=== PATIENT | female | born 1935 | race Asian ===

== ENCOUNTER 2017-01-25 10:16 | Inpatient (IN) | payer MEDICARE, MEDICAID ==
[~2017-01-25] VITALS: Ht 144.8 cm; Wt 53.5 kg
[~2017-01-25 10:16] MED LIST: ALLO100T PO; CLOP75TA2 PO; METO50TA3 PO; NIFE20CA PO; RETINAVITES
--- NOTE | 2017-01-25 10:21 | NUR ---
bib family due to nausea and vomitting x 7 days. Denies vomitting within the day, last episode was last night. Patient denies abdominal pain. No chest pain noted. No sob, sating well on room air. Skin is warm to touch and non diaphoretic,. pt afebrile. vss. gowned and placed on tele monitor
--- NOTE | 2017-01-25 10:25 | NUR ---
iv accessed to [facility] 20. blood sample sent to lab
[2017-01-25 10:45] LABS: BASOPHILS # (AUTO) 0.1 /CMM (0.0-0.2); BASOPHILS % (AUTO) 0.6 % (0.0-2.0); EOSINOPHILS # (AUTO) 0.8 /CMM (0.0-0.7); EOSINOPHILS % (AUTO) 8.1 % (0.0-6.0); HEMATOCRIT 30 % (33-45); LYMPHOCYTES # (AUTO) 1.7 /CMM (0.8-4.8); LYMPHOCYTES % (AUTO) 16.8 % (20.0-44.0); MEAN CORPUSCULAR HEMOGLOBIN 30 PG (26.0-33.0); MEAN CORPUSCULAR HGB CONC 33 g/dl (31.0-36.0); MEAN CORPUSCULAR VOLUME 93 fL (82-100); MONOCYTES # (AUTO) 0.9 /CMM (0.1-1.30); MONOCYTES % (AUTO) 8.7 % (2.0-12.0); NEUTROPHILS # (AUTO) 6.6 /CMM (1.8-8.9); NEUTROPHILS % (AUTO) 65.8 % (43.0-81.0); PLATELET COUNT (AUTO) 178 /CMM (150-450); RDW COEFFICIENT OF VARIATION 14.8 (11.5-15.0); RED BLOOD CELL COUNT(AUTO) 3.28 MIL/uL (4.0-5.2); WHITE BLOOD COUNT (AUTO) 10.1 K/uL (4.3-11.0)
[2017-01-25] MEDS ORDERED: IV NS 0.9% 1,000 ML ONE ×2 (10:55→11:30)
[2017-01-25] MEDS ORDERED: ONDANSETRON HCL/PF 4 MG/2 ML VIAL ONE (10:55)
[2017-01-25] MEDS ORDERED: ONDANSETRON HCL/PF 4 MG/2 ML VIAL IVP ONE (11:00)
[2017-01-25] MEDS ORDERED: IV NS 0.9% 1,000 ML BAG IV ONE ×2 (11:00→11:30)
--- NOTE | 2017-01-25 11:13 | NUR ---
urine sample sent to lab
[2017-01-25 11:14] LABS: ALANINE AMINOTRANSFERASE 13 U/L (12-78); ALBUMIN 3.1 g/dL (3.4-5.0); ALKALINE PHOSPHATASE 115 U/L (46-116); ASPARTATE AMINOTRANSFERASE 13 U/L (15-37); BILIRUBIN,DIRECT 0.1 mg/dL (0.0-0.2); BILIRUBIN,TOTAL 0.3 mg/dL (0.2-1.0); CALCIUM, SERUM 9.2 mg/dL (8.5-10.1); CARBON DIOXIDE 14 mmol/L (21-32); CHLORIDE 111 mmol/L (98-107); GLUCOSE 102 mg/dL (74-106); LIPASE 794 U/L (73-393); POTASSIUM 4.7 mmol/L (3.5-5.1); SODIUM SERUM 141 mmol/L (136-145); TOTAL PROTEIN, SERUM 8.3 g/dL (6.4-8.2)
[2017-01-25 11:16] LABS: APPEARANCE,URINE Turbid (CLEAR); BILIRUBIN,URINE Negative (NEGATIVE); BLOOD, URINE Moderate Ery/uL (NEGATIVE); COLOR,URINE Yellow (YELLOW); KETONES,URINE Negative (NEGATIVE); LEUKOCYTE ESTERASE ,URINE Large (NEGATIVE); NITRITE, URINE Positive (NEGATIVE); PROTEIN,URINE >=300 mg/dl (NEGATIVE); UGLUCOSE Negative (NEGATIVE); UROBILINOGEN,URINE 0.2 EU/dL (0.2)
[2017-01-25 11:16] LABS: TROPONIN I < 0.017 ng/mL (0.00-0.056)
[2017-01-25 11:18] LABS: UREA NITROGEN, BLOOD 85 mg/dL (7-18)
[2017-01-25 11:30] LABS: ADD URINE CULTURE YES; BACTERIA,URINE 2+ /HPF (None Seen); WBC,URINE 51-80 /HPF (0-3)
[2017-01-25] MEDS ORDERED: TEMA15CA PO (11:30)
[2017-01-25] MEDS ORDERED: CEFTRIAXONE 1GM BAG (ER ONLY) 1 GM/50 ML PIGGYBACK IV ONE (11:30)
[2017-01-25] MEDS ORDERED: IV SET PRIMARY PUMP SET 1 EA INFUS.SET MC ONE ×2 (11:30→12:49)
[2017-01-25] MEDS ORDERED: SECONDARY IV SET 1 EA INFUS.SET MC ONE (11:30)
[2017-01-25] MEDS ORDERED: NIFE60TA69 PO (11:30)
[2017-01-25] MEDS ORDERED: CEFTRIAXONE 1GM BAG (ER ONLY) 50 ML IV ONE (11:30)
[2017-01-25 11:31] LABS: URINE AMORPHOUS URATE Moderate /HPF (None Seen)
--- NOTE | 2017-01-25 11:51 | NUR ---
Report given to BEREKET Lowery for change of condition.
--- NOTE | 2017-01-25 12:15 | NUR ---
Pt transported to ms 2. vss
[2017-01-25] MEDS ORDERED: Z GUARD REMEDY 2 OZ OINT TP PRN (12:30)
[2017-01-25] MEDS ORDERED: MAG HYDROX/AL HYDROX/SIMETH 30 ML UDC PO PRN (12:30)
[2017-01-25] MEDS ORDERED: ONDANSETRON HCL/PF 4 MG/2 ML VIAL IVP PRN (12:30)
[2017-01-25] MEDS ORDERED: METOPROLOL TARTRATE 50 MG TABLET PO SCH ×2 (12:30→17:09)
[2017-01-25] MEDS: NIFEdipine XL 60 MG TAB PO SCH (12:30)
[2017-01-25] MEDS ORDERED: ACETAMINOPHEN 325 MG TABLET PO PRN (12:30)
[2017-01-25] MEDS ORDERED: MAGNESIUM HYDROXIDE 30 ML UDC PO PRN (12:30)
--- NOTE | 2017-01-25 13:00 | NUR ---
MS/radiology director Patient admitted from emergency room with diagnosis of acute pancreatitis and dehydration. Patient fully admitted, skin intact, IV fluids infusing at 75ml/hr via rigth AC 20g. Denies any pain at this time. Admitting orders given by Dr Peacock.
[2017-01-25] MEDS: IV NS 0.9% 1,000 ML IV PRN (13:04)
[2017-01-25 16:00] VITALS: BP 127/77
[2017-01-25] MEDS: PANTOPRAZOLE 40 MG VIAL IV SCH (16:52)
--- NOTE | 2017-01-25 17:00 | NUR ---
MS/RN Metoprolol Patient requesting metoprolol 50mg given rescheduled to be given at night time. Pharmacy called, spoke with Adam, will reschedule per patients request.
--- NOTE | 2017-01-25 18:07 | NUR ---
MS/RN Dr Peacock Spoke with Dr Peacock - CT scan of abdomen and pelvis without contrast to be ordered. GI consult requested with Dr Rojas.
--- NOTE | 2017-01-25 18:49 | NUR ---
MS/RN End note Patients condition remains unchanged, family at bedside and updated as to plan of care. Awaiting for CT scan. All questions and concerns addressed. Will endorse to shift supervisor melting.
--- NOTE | 2017-01-25 19:30 | NUR ---
MSRN FULLY AWAKE, FAMILY AT BEDSIDE, VERY SUPPORTIVE. PRESENT IVF INFUSING WELL VIA LEFT AC 22 GAUGE. CLEAR LIQUIDS ONLY ALLOWED. RADIOLOGY TO DO HER CT ABD IN AM. NOTIFIED FAMILY. DENIES ANY PAIN OF THIS TIME. REMINDED TO CALL STAFF FOR ANY ASSISTANCE OR DISCOMFORTS, AND SAFETY PRECAUTIONS EMPHASIZED. WELL UNDERSTOOD BY PATIENT.
[2017-01-25 20:17] VITALS: BP 136/63
--- NOTE | 2017-01-25 21:00 | NUR ---
MSRN REQUESTED RESTORIL FOR SLEEP. OTHER DUE MEDS ADMINISTERED. ASSISTED TO RESTROOM. HFR. ASSISTED. GAIT STEADY NEEDS CLOSER SUPERVISION. TO STAY OVERNIGHT
[2017-01-25] MEDS: TEMAZEPAM 15 MG CAPSULE PO SCH (21:02)
[2017-01-25] MEDS: METOPROLOL TARTRATE 50 MG TABLET PO SCH (21:02)
[2017-01-25] MEDS ORDERED: ZOLPIDEM TARTRATE 5 MG TABLET PO PRN (22:00)
--- NOTE | 2017-01-25 23:30 | NUR ---
MSRN PROVIDED BSC, ASSISTED, VOIDED FREELY.
[2017-01-26] MEDS: IV NS 0.9% 1,000 ML IV PRN (05:07)
[2017-01-26 06:47] LABS: BASOPHILS % (AUTO) 0.3 % (0.0-2.0); EOSINOPHILS # (AUTO) 0.7 /CMM (0.0-0.7); EOSINOPHILS % (AUTO) 8.8 % (0.0-6.0); HEMATOCRIT 26 % (33-45); HEMOGLOBIN 8.6 g/dL (11.5-14.8); LYMPHOCYTES # (AUTO) 1.3 /CMM (0.8-4.8); LYMPHOCYTES % (AUTO) 15.3 % (20.0-44.0); MEAN CORPUSCULAR HEMOGLOBIN 30 PG (26.0-33.0); MEAN CORPUSCULAR HGB CONC 33 g/dl (31.0-36.0); MEAN CORPUSCULAR VOLUME 91 fL (82-100); MONOCYTES # (AUTO) 0.8 /CMM (0.1-1.30); NEUTROPHILS # (AUTO) 5.6 /CMM (1.8-8.9); NEUTROPHILS % (AUTO) 66.6 % (43.0-81.0); PLATELET COUNT (AUTO) 168 /CMM (150-450); RDW COEFFICIENT OF VARIATION 15.5 (11.5-15.0); RED BLOOD CELL COUNT(AUTO) 2.87 MIL/uL (4.0-5.2); WHITE BLOOD COUNT (AUTO) 8.4 K/uL (4.3-11.0)
--- NOTE | 2017-01-26 06:53 | NUR ---
MSRN NO CHANGE ON PATIENTS' CONDITION. DID NOT VERBALIZE PAIN. LABS DRAWN. PRESENT IVF INFUSING WELL.
[2017-01-26 07:12] LABS: ALBUMIN 2.5 g/dL (3.4-5.0); BILIRUBIN,TOTAL 0.3 mg/dL (0.2-1.0); CALCIUM, SERUM 8.5 mg/dL (8.5-10.1); CREATININE 5.2 mg/dL (0.6-1.3); MAGNESIUM 1.8 mg/dL (1.8-2.4); PHOSPHORUS 4.5 mg/dL (2.5-4.9); POTASSIUM 5.9 mmol/L (3.5-5.1); TOTAL PROTEIN, SERUM 6.9 g/dL (6.4-8.2)
[2017-01-26 08:00] VITALS: BP 149/64
--- NOTE | 2017-01-26 08:00 | NUR ---
MS BEREKET NOTES PATIENT IN BED RESTING NO SOB OR ACUTE DISTRESS. NEW IV STARTED ON RIGHT HAND INTACT PATENT RUNNING PRESCRIBED FLUIDS. ALL DUE MEDICATIONS GIVEN. ALL NEEDS MET. WILL ENDORSE TO PM SHIFT. Addendum: 01/26/17 at 1809 by MILLER CORTEZ RN ERROR DISREGARD NOTE.
--- NOTE | 2017-01-26 08:00 | NUR ---
MS RN NOTES PATIENT IN BED RESTING WITH FAMILY AT BEDSIDE. NO SOB OR ACUTE DISTRESS NOTED. IV INTACT PATENT RUNNING PRESCRIBED FLUIDS. CALL LIGHT WITH REACH. BED IN LOW LOCKED POSITION. WILL CONTINUE TO MONITOR.
[2017-01-26] MEDS: NIFEdipine XL 60 MG TAB PO SCH (09:13)
[2017-01-26] MEDS: PANTOPRAZOLE 40 MG VIAL IV SCH (09:13)
[2017-01-26] MEDS ORDERED: SODIUM POLYSTYRENE SULFONATE 15 G/60 ML BOTTLE PO ONE (11:00)
--- NOTE | 2017-01-26 11:00 | NUR ---
MS RN NOTES PATIENT NPO FOR ABDOMINAL ULTRASOUND. WILL CONTINUE TO MONITOR.
--- NOTE | 2017-01-26 11:00 | NUR ---
MS RN NOTES PATIENT SEEN AND EVALUATED BY DR. VILLEGAS NOTIFIED OF INCREASED POTASSIUM LEVEL NEW ORDERS NOTED AND CARRIED OUT.
[2017-01-26] MEDS: CEFTRIAXONE 1 G in IV D5W 50 ML IV SCH (11:30)
[2017-01-26] MEDS ORDERED: SECONDARY IV SET 1 EA INFUS.SET MC ONE (11:33)
[2017-01-26] MEDS ORDERED: IV SET PRIMARY PUMP SET 1 EA INFUS.SET MC ONE (14:35)
[2017-01-26] MEDS: Sodium Bicarbonate 150 MEQ in IV D5W 1,000 ML IV PRN (14:41)
[2017-01-26 16:00] VITALS: BP 156/61
[2017-01-26] MEDS: HYDROCODONE/APAP 5/325MG 1 EACH TABLET PO PRN (17:48)
--- NOTE | 2017-01-26 18:09 | NUR ---
MS RN NOTES PATIENT IN BED RESTING NO SOB OR ACUTE DISTRESS. NEW IV STARTED ON RIGHT HAND INTACT PATENT RUNNING PRESCRIBED FLUIDS. ALL DUE MEDICATIONS GIVEN. ALL NEEDS MET. WILL ENDORSE TO PM SHIFT.
--- NOTE | 2017-01-26 19:45 | NUR ---
MSRN FULLY AWAKE, FAMILY AT BEDSIDE. NO NEEDS FOR NOW. EXPLAINED TO FAMILY NEED TO HAVE MRCP DONE . AGREED WITH PLAN OF CARE. FAMILY VERY SUPPORTIVE.
[2017-01-26 20:00] VITALS: BP 143/66
[2017-01-26] MEDS: TEMAZEPAM 15 MG CAPSULE PO SCH (21:17)
[2017-01-26] MEDS: METOPROLOL TARTRATE 50 MG TABLET PO SCH (21:17)
--- NOTE | 2017-01-26 22:00 | NUR ---
MSRN DUE MEDS ADMINSTERED.
--- NOTE | 2017-01-27 00:51 | NUR ---
MSRN SLEEPING APPEARS COMFORTABLE. CLOSELY WATCHED
[2017-01-27] MEDS: Sodium Bicarbonate 150 MEQ in IV D5W 1,000 ML IV PRN (05:59)
[2017-01-27] MEDS: HYDROCODONE/APAP 5/325MG 1 EACH TABLET PO PRN (06:06)
--- NOTE | 2017-01-27 06:14 | NUR ---
msrn verbalizes gen pain norco 1 tab po administered. all needs attended.
[2017-01-27 07:09] LABS: IRON, SERUM 33 ug/dl (50-175); TOTAL IRON BINDING CAPACITY 200 ug/dl (250-450)
[2017-01-27 07:14] LABS: CALCIUM, SERUM 8.1 mg/dL (8.5-10.1); CREATININE 4.7 mg/dL (0.6-1.3); MAGNESIUM 1.4 mg/dL (1.8-2.4); PHOSPHORUS 4.5 mg/dL (2.5-4.9); POTASSIUM 4.2 mmol/L (3.5-5.1)
[2017-01-27 07:16] LABS: BASOPHILS % (AUTO) 0.7 % (0.0-2.0); EOSINOPHILS # (AUTO) 0.7 /CMM (0.0-0.7); HEMATOCRIT 26 % (33-45); HEMOGLOBIN 8.4 g/dL (11.5-14.8); MEAN CORPUSCULAR HEMOGLOBIN 29 PG (26.0-33.0); MEAN CORPUSCULAR HGB CONC 33 g/dl (31.0-36.0); MEAN CORPUSCULAR VOLUME 90 fL (82-100); MONOCYTES # (AUTO) 0.7 /CMM (0.1-1.30); MONOCYTES % (AUTO) 11.4 % (2.0-12.0); NEUTROPHILS # (AUTO) 3.3 /CMM (1.8-8.9); NEUTROPHILS % (AUTO) 57.9 % (43.0-81.0); PLATELET COUNT (AUTO) 156 /CMM (150-450); RDW COEFFICIENT OF VARIATION 15.4 (11.5-15.0); RED BLOOD CELL COUNT(AUTO) 2.86 MIL/uL (4.0-5.2); WHITE BLOOD COUNT (AUTO) 5.7 K/uL (4.3-11.0)
[2017-01-27 07:33] LABS: FERRITIN 126 ng/mL (8-388)
[2017-01-27 08:00] VITALS: BP 156/69
--- NOTE | 2017-01-27 08:00 | NUR ---
MS 2 RN AM NOTES FULLY AWAKE, FAMILY AT BEDSIDE, VERY SUPPORTIVE. PRESENT IVF INFUSING WELL VIA LEFT AC 22 GAUGE. CLEAR LIQUIDS ONLY ALLOWED. ON NPO FOR MRCP WO CONTRAST. FAMILY AWARE. PT DENIES ANY PAIN OR DISTRESS AT THIS TIME. REMINDED TO CALL STAFF FOR ANY ASSISTANCE OR DISCOMFORTS, AND SAFETY PRECAUTIONS EMPHASIZED.CALL LIGHT WITHIN REACH. WELL UNDERSTOOD VERBALIZED BY PATIENT AND FAMILY.
[2017-01-27] MEDS: PANTOPRAZOLE 40 MG VIAL IV SCH (08:58)
[2017-01-27] MEDS: NIFEdipine XL 60 MG TAB PO SCH ×2 (08:59→10:50)
[2017-01-27] MEDS ORDERED: SECONDARY IV SET 1 EA INFUS.SET MC ONE (09:32)
[2017-01-27] MEDS: IV 1/2NS 1000 ML 1,000 ML IV PRN (10:51)
[2017-01-27] MEDS: Magnesium 1GM/D5W 100ML PREMIX 100 ML IV SCH ×2 (10:52→14:06)
[2017-01-27] MEDS: CEFTRIAXONE 1 G in IV D5W 50 ML IV SCH (12:22)
[2017-01-27] MEDS: SOD FERRIC GLUC 125 MG in IV NS 0.9% 100 ML IV SCH (15:34)
[2017-01-27 16:00] VITALS: BP 152/78
--- NOTE | 2017-01-27 19:30 | NUR ---
MS2/RN - CLOSING NOTE PT. IS IN BED A&OX4. NOT IN DISTRESS, DOES NOT C/O PAIN. PT. IS BREATHING EVENLY AND UNLABORED. PT. HAD AN MRI WITHOUT CONTRAST IN THE MORNING, AND STOOL SAMPLE TAKEN FOR LAB. PT. HAD A SMALL BOWEL MOVEMENT TODAY. IV ACCESS ON RIGHT HAND WITH IV FLUIDS BEING INFUSED. BED IN LOWEST POSITION, SIDE RAILS UP, AND CALL LIGHT WITHIN REACH.
--- NOTE | 2017-01-27 19:40 | NUR ---
MS RN NOTE: PATIENT RESTING IN BED, NO ACUTE DISTRESS NOTED, FAMILY AT BEDSIDE. BREATHING EVEN AND UNLABORED, NO SOB NOTED. IV TO RIGHT HAND IN PLACE, INFUSING 1/2NS AT 75 ML/HR. BED LOCKED AND IN LOWEST POSITION, CALL LIGHT IN REACH. WILL CONTINUE TO MONITOR.
[2017-01-27 20:00] VITALS: BP 142/70
[2017-01-27] MEDS: METOPROLOL TARTRATE 50 MG TABLET PO SCH (20:52)
[2017-01-27] MEDS: TEMAZEPAM 15 MG CAPSULE PO SCH (21:31)
[2017-01-28] MEDS: IV 1/2NS 1000 ML 1,000 ML IV PRN (02:43)
--- NOTE | 2017-01-28 03:00 | NUR ---
MS RN NOTE: PATIENT SLEEPING IN BED, NO ACUTE DISTRESS NOTED, FAMILY AT BEDSIDE. BREATHING EVEN AND UNLABORED, NO SOB NOTED. IV TO RIGHT HAND IN PLACE. BED LOCKED AND IN LOWEST POSITION, CALL LIGHT IN REACH. WILL CONTINUE TO MONITOR.
--- NOTE | 2017-01-28 06:09 | NUR ---
MS RN NOTE: PATIENT RESTING IN BED, NO ACUTE DISTRESS NOTED, FAMILY AT BEDSIDE. BREATHING EVEN AND UNLABORED, NO SOB NOTED. IV TO RIGHT HAND IN PLACE, INFUSING 1/2NS AT 75 ML/HR. BED LOCKED AND IN LOWEST POSITION, CALL LIGHT IN REACH. WILL ENDORSE TO DAY NURSE TO CONTINUE WITH PLAN OF CARE.
[2017-01-28 06:40] LABS: BASOPHILS # (AUTO) 0.1 /CMM (0.0-0.2); BASOPHILS % (AUTO) 0.8 % (0.0-2.0); EOSINOPHILS # (AUTO) 0.7 /CMM (0.0-0.7); EOSINOPHILS % (AUTO) 10.4 % (0.0-6.0); HEMATOCRIT 25 % (33-45); HEMOGLOBIN 8.2 g/dL (11.5-14.8); LYMPHOCYTES # (AUTO) 1.2 /CMM (0.8-4.8); MEAN CORPUSCULAR HEMOGLOBIN 30 PG (26.0-33.0); MEAN CORPUSCULAR HGB CONC 33 g/dl (31.0-36.0); MEAN CORPUSCULAR VOLUME 90 fL (82-100); MONOCYTES # (AUTO) 0.8 /CMM (0.1-1.30); MONOCYTES % (AUTO) 11.4 % (2.0-12.0); NEUTROPHILS # (AUTO) 4.2 /CMM (1.8-8.9); NEUTROPHILS % (AUTO) 60.4 % (43.0-81.0); PLATELET COUNT (AUTO) 146 /CMM (150-450); RDW COEFFICIENT OF VARIATION 15.3 (11.5-15.0); RED BLOOD CELL COUNT(AUTO) 2.73 MIL/uL (4.0-5.2); WHITE BLOOD COUNT (AUTO) 6.9 K/uL (4.3-11.0)
[2017-01-28 07:08] LABS: CALCIUM, SERUM 8.3 mg/dL (8.5-10.1); CREATININE 4.2 mg/dL (0.6-1.3); PHOSPHORUS 3.3 mg/dL (2.5-4.9)
--- NOTE | 2017-01-28 07:15 | NUR ---
MS/RN OPENING NOTES RECEIVED PATIENT IN BED AWAKE WITH FAMILY @ BEDSIDE. ALERT AND ORIENTED X 4. ABLE TO VERBALIZED NEEDS AND CONCERNS WITH NO C/O PAIN OR DISCOMFORTS @ THIS TIME. IV ACCESS ON RIGHT HAND INTACT AND PATENT WITH IVF OF 1/2 NS @ 75ML/HR IN PROGRESS. REMINDED TO CALL STAFF FOR ANY ASSISTANCE. CALL LIGHT WITHIN REACH. BED KEPT LOW AND LOCKED. SAFETY PRECAUTIONS MAINTAINED.WILL CONTINUE TO MONITOR ACCORDINGLY.
[2017-01-28 08:00] VITALS: BP 147/60
[2017-01-28] MEDS: PANTOPRAZOLE 40 MG VIAL IV SCH (08:38)
[2017-01-28] MEDS: NIFEdipine XL 60 MG TAB PO SCH (08:38)
--- NOTE | 2017-01-28 11:03 | NUR ---
RN NOTES PATIENT SEEN AND EXAMINED BY DR VILLEGAS AND HE'S AWARE OF PATIENT'S BLOOD WORK RESULTS THIS MORNING, NO NEW ORDER AT THIS TIME. WILL CONTINUE TO MONITOR.
[2017-01-28] MEDS: CEFTRIAXONE 1 G in IV D5W 50 ML IV SCH (11:49)
[2017-01-28] MEDS ORDERED: SECONDARY IV SET 1 EA INFUS.SET MC ONE (11:51)
--- NOTE | 2017-01-28 12:53 | NUR ---
RN NOTES PATIENT'S IV ACCESS ON RIGHT HAND INFILTRATED. INSERTED NEW LINE ON LEFT HAND G#22 AND SECURED WITH TAPE. WILL CONTINUE TO MONITOR.
[2017-01-28] MEDS: SOD FERRIC GLUC 125 MG in IV NS 0.9% 100 ML IV SCH (14:33)
[2017-01-28 16:10] VITALS: BP 139/75
--- NOTE | 2017-01-28 17:40 | NUR ---
RN DISCHARGED NOTES PATIENT LEFT UNIT AT 1720 VIA WHEELCHAIR IN STABLE CONDITION ACCOMPANIED TO LOBBY BY ASSIGNED POURED CONCRETE WALL TECHNICIAN AND FAMILY. PATIENT IS ALERT AND ORIENTED X 4, NO COMPLAINTS OF PAIN OR DISCOMFORTS VOICED DURING DISCHARGED. IV ACCESS REMOVED WITH NO BLEEDING NOTED. V/S CHECKED AND RECORDED. SKIN IS INTACT. BELONGINGS CHECKED, COUNTED AND SIGNED FORM. HEALTH TEACHINGS AND DISCHARGE INSTRUCTIONS GIVEN AND PATIENT AND FAMILY VERBALIZED UNDERSTANDING. MD AND CHARGE NURSE AWARE OF DISCHARGE.
== END 2017-01-28 18:32 | disposition home or self-care (01) | DRG 438 ==
LOC: ER 10:17 → MEDSG2 11:51
PROVIDERS: ADMIT Internal Medicine; ATTEND Internal Medicine
DX: K85.90 Acute pancreatitis without necrosis or infection, unspecified (principal); N17.0 Acute kidney failure with tubular necrosis; K83.1 Obstruction of bile duct; N39.0 Urinary tract infection, site not specified; E87.0 Hyperosmolality and hypernatremia; K92.2 Gastrointestinal hemorrhage, unspecified; E87.2 Acidosis; D62 Acute posthemorrhagic anemia; K59.00 Constipation, unspecified; E86.0 Dehydration; B96.20 Unspecified Escherichia coli [E. coli] as the cause of diseases classified elsewhere; D63.8 Anemia in other chronic diseases classified elsewhere; D50.9 Iron deficiency anemia, unspecified; I12.9 Hypertensive chronic kidney disease with stage 1 through stage 4 chronic kidney disease, or unspecified chronic kidney disease; K86.1 Other chronic pancreatitis; N18.9 Chronic kidney disease, unspecified; J45.20 Mild intermittent asthma, uncomplicated; E87.5 Hyperkalemia; N28.1 Cyst of kidney, acquired; K76.89 Other specified diseases of liver; T39.395A Adverse effect of other nonsteroidal anti-inflammatory drugs [NSAID], initial encounter; Y92.009 Unspecified place in unspecified non-institutional (private) residence as the place of occurrence of the external cause
CPT/HCPCS: 36415; 74000-TC; 74181-TC; 76700-TC; 80048-TC; 80053-TC; 80061-TC; 80076-TC; 81000-TC; 82272-TC; 82728-TC; 83540-TC; 83605-TC; 83690-TC; 83735-TC; 84100-TC; 84484-TC; 85025-TC; 86301; 87081-TC; 87086-TC; 87186-TC; A4606; C9113; J0696; J2405; J2916; J3475; J3490; J7030; J7060; J7070; Z7610

== ENCOUNTER 2017-02-02 21:54 | Inpatient (IN) | payer MEDICARE, MEDICAID ==
[~2017-02-02] VITALS: Ht 144.8 cm; Wt 53.5 kg
[~2017-02-02 21:54] MED LIST changes: -ALLO100T PO; -CLOP75TA2 PO; -NIFE20CA PO; +NIFE60TA69 PO; -RETINAVITES; +TEMA15CA PO
--- NOTE | 2017-02-02 22:10 | NUR ---
PT BIB FAMILY WITH A C/O URINARY RETENTION. PT AMBULATED TO BED #4 WITH A SLOW STEADY GAIT. PT IS ON THE MONITOR AND CONTINUOUS PULSE OX.
--- NOTE | 2017-02-02 22:30 | NUR ---
20G IV IN LT HAND. BLOOD NOT OBTAINED FROM IV. ETCHER ENAMELING IS AT THE BEDSIDE FOR BLOOD DRAW.
--- NOTE | 2017-02-02 22:39 | NUR ---
REPORT GIVEN TO BEREKET LEMUS
--- NOTE | 2017-02-02 22:40 | NUR ---
SHERWOOD INSERTED. APPROX 15 ML CLEAR OUTPUT NOTED.
[2017-02-02 22:49] LABS: BASOPHILS # (AUTO) 0.1 /CMM (0.0-0.2); BASOPHILS % (AUTO) 0.8 % (0.0-2.0); EOSINOPHILS # (AUTO) 0.6 /CMM (0.0-0.7); EOSINOPHILS % (AUTO) 7.6 % (0.0-6.0); HEMATOCRIT 25 % (33-45); HEMOGLOBIN 8.2 g/dL (11.5-14.8); LYMPHOCYTES # (AUTO) 1.7 /CMM (0.8-4.8); LYMPHOCYTES % (AUTO) 22.1 % (20.0-44.0); MEAN CORPUSCULAR HEMOGLOBIN 30 PG (26.0-33.0); MEAN CORPUSCULAR HGB CONC 33 g/dl (31.0-36.0); MEAN CORPUSCULAR VOLUME 92 fL (82-100); MONOCYTES # (AUTO) 1.2 /CMM (0.1-1.30); MONOCYTES % (AUTO) 16.1 % (2.0-12.0); NEUTROPHILS # (AUTO) 4.1 /CMM (1.8-8.9); NEUTROPHILS % (AUTO) 53.4 % (43.0-81.0); PLATELET COUNT (AUTO) 180 /CMM (150-450); RDW COEFFICIENT OF VARIATION 15.2 (11.5-15.0); RED BLOOD CELL COUNT(AUTO) 2.75 MIL/uL (4.0-5.2); WHITE BLOOD COUNT (AUTO) 7.6 K/uL (4.3-11.0)
[2017-02-02 22:52] LABS: BILIRUBIN,URINE NEGATIVE (NEGATIVE); BLOOD, URINE 1+ Ery/uL (NEGATIVE); COLOR,URINE YELLOW (YELLOW); KETONES,URINE NEGATIVE (NEGATIVE); LEUKOCYTE ESTERASE ,URINE NEGATIVE (NEGATIVE); NITRITE, URINE NEGATIVE (NEGATIVE); PROTEIN,URINE 2+ mg/dl (NEGATIVE); UGLUCOSE NEGATIVE (NEGATIVE); UROBILINOGEN,URINE 0.2 EU/dL (0.2)
[2017-02-02 22:57] LABS: APPEARANCE,URINE HAZY (CLEAR)
[2017-02-02 23:01] LABS: ADD URINE CULTURE NO; BACTERIA,URINE None seen /HPF (None Seen); RBC,URINE 0-3 /HPF (0-2); SQUAMOUS EPITHELIAL CELL,UR Few /HPF (None Seen); URINE AMORPHOUS URATE Moderate /HPF (None Seen); WBC,URINE NONE SEEN /HPF (0-3)
[2017-02-02 23:04] LABS: CALCIUM, SERUM 8.1 mg/dL (8.5-10.1); CREATININE 5.3 mg/dL (0.6-1.3)
--- NOTE | 2017-02-02 23:20 | NUR ---
CALLED NURSING SUP. FOR TELE BED
[2017-02-02 23:23] LABS: ALBUMIN 2.7 g/dL (3.4-5.0); BILIRUBIN,TOTAL 0.1 mg/dL (0.2-1.0); TOTAL PROTEIN, SERUM 7.2 g/dL (6.4-8.2)
[2017-02-03 00:09] LABS: BAND % (MANUAL) 2 % (0.0-5.0); EOSINOPHILS % (MANUAL) 7 % (0-4); LYMPHOCYTES % (MANUAL) 26 % (16-48); MONOCYTES % (MANUAL) 10 % (0-11.0); NEUTROPHILS % (MANUAL) 55 (42-76)
[2017-02-03 00:17] LABS: PLATELET ESTIMATE ADEQUATE
[2017-02-03 00:18] LABS: HYPOCHROMASIA 1+
--- NOTE | 2017-02-03 00:30 | NUR ---
PT TRANSPORTED TO [facility], PER PROTOCOL.
--- NOTE | 2017-02-03 00:45 | NUR ---
RN ADMITTING NOTES RECEIVED REPORT FROM MEDICATION CARE MANAGER CHEN. Pt IS A/OX4, VERBAL, ABLE TO MAKE NEEDS KNOWN. NO S/S OF ACUTE DISTRESS OR SOB NOTED. NO C/O PAIN. FAMILY AT BEDSIDE. IV ACCESS ON L HAND #20G. SHERWOOD CATHETER IN PLACE, DRAINING WELL. SAFETY MEASURES IN PLACE. BED LOW, LOCKED, HOB ELEVATED, SIDE RAILS UP, CALL LIGHT WITHIN REACH. WILL CONTINUE TO MONITOR Pt THROUGHOUT THE NIGHT.
[2017-02-03 01:00] VITALS: BP 138/61
--- NOTE | 2017-02-03 01:02 | NUR ---
Kasie aranda in [facility] - 02/03/17 at 0103 by RANDAL WELDER FITTER HELPER IS AT THE BEDSIDE FOR BLOOD DRAW.
[2017-02-03] MEDS ORDERED: ONDANSETRON HCL/PF 4 MG/2 ML VIAL IVP PRN (02:00)
[2017-02-03] MEDS ORDERED: MAG HYDROX/AL HYDROX/SIMETH 30 ML UDC PO PRN (02:00)
[2017-02-03] MEDS ORDERED: MAGNESIUM HYDROXIDE 30 ML UDC PO PRN (02:00)
[2017-02-03] MEDS ORDERED: TEMAZEPAM 15 MG CAPSULE ONE (02:06)
[2017-02-03] MEDS ORDERED: IV SET PRIMARY PUMP SET 1 EA INFUS.SET MC ONE (02:09)
[2017-02-03] MEDS ORDERED: IV NS 0.9% 1,000 ML ONE (02:09)
[2017-02-03] MEDS: IV NS 0.9% 1,000 ML IV PRN (02:24)
[2017-02-03] MEDS ORDERED: TEMAZEPAM 15 MG CAPSULE PO ONE (02:30)
[2017-02-03 04:00] VITALS: BP 146/72
[2017-02-03 06:35] VITALS: BP 150/71
--- NOTE | 2017-02-03 06:45 | NUR ---
RN CLOSING NOTES NO SIGNIFICANT CHANGES NOTED DURING THE NIGHT. NO S/S OF ACUTE DISTRESS OR SOB NOTED. ALL NEEDS MET AND ATTENDED TO. SAFETY MEASURES IN PLACE. TELE READING SR 66. SHERWOOD CATHETER 1300CC OUT. IV ACCESS ON L HAND IVF NS @75ML/HR INFUSING WELL. WILL ENDORSE TO DAYSHIFT RN FOR Pt's SERVANDO & SAFETY.
--- NOTE | 2017-02-03 07:30 | NUR ---
MS OPENING NOTES RECEIVED REPORT FROM NIGHT NURSE. PATIENT WAS RESTING IN BED. BED IN LOW AND LOCKED POSITION, BOTH SIDE RAILS UP WITH NO SIGNS OF DISTRESS.
[2017-02-03 07:35] LABS: ALBUMIN 2.3 g/dL (3.4-5.0); BILIRUBIN,TOTAL 0.1 mg/dL (0.2-1.0); MAGNESIUM 1.5 mg/dL (1.8-2.4); PHOSPHORUS 4.9 mg/dL (2.5-4.9); TOTAL PROTEIN, SERUM 6.3 g/dL (6.4-8.2)
[2017-02-03] MEDS: METOPROLOL TARTRATE 50 MG TABLET PO SCH (08:46)
[2017-02-03] MEDS: PANTOPRAZOLE 40 MG TABLET.DR PO SCH (08:47)
[2017-02-03] MEDS: NIFEdipine XL 60 MG TAB PO SCH (08:48)
[2017-02-03 09:48] LABS: CREATININE 5.1 mg/dL (0.6-1.3); POTASSIUM 5.5 mmol/L (3.5-5.1)
[2017-02-03 10:47] LABS: HEMOGLOBIN 7.5 g/dL (11.5-14.8)
[2017-02-03 10:51] LABS: BASOPHILS # (AUTO) 0.1 /CMM (0.0-0.2); BASOPHILS % (AUTO) 1.2 % (0.0-2.0); EOSINOPHILS # (AUTO) 0.5 /CMM (0.0-0.7); EOSINOPHILS % (AUTO) 7.7 % (0.0-6.0); HEMATOCRIT 24 % (33-45); HEMOGLOBIN 7.5 g/dL (11.5-14.8); LYMPHOCYTES # (AUTO) 1.7 /CMM (0.8-4.8); LYMPHOCYTES % (AUTO) 25.7 % (20.0-44.0); MEAN CORPUSCULAR HEMOGLOBIN 29 PG (26.0-33.0); MEAN CORPUSCULAR HGB CONC 32 g/dl (31.0-36.0); MEAN CORPUSCULAR VOLUME 92 fL (82-100); MONOCYTES % (AUTO) 14.4 % (2.0-12.0); NEUTROPHILS # (AUTO) 3.4 /CMM (1.8-8.9); PLATELET COUNT (AUTO) 165 /CMM (150-450); RDW COEFFICIENT OF VARIATION 15.1 (11.5-15.0); RED BLOOD CELL COUNT(AUTO) 2.56 MIL/uL (4.0-5.2); WHITE BLOOD COUNT (AUTO) 6.8 K/uL (4.3-11.0)
[2017-02-03] MEDS ORDERED: EPOETIN ALFA (20,000 UNIT) 20,000 UNIT/ML VIAL SQ ONE (12:30)
[2017-02-03] MEDS ORDERED: Magnesium 1GM/D5W 100ML PREMIX 100 ML IV SCH (12:31)
[2017-02-03] MEDS: ACETAMINOPHEN 325 MG TABLET PO PRN (13:00)
[2017-02-03 16:00] VITALS: BP 120/58
[2017-02-03 16:25] LABS: CALCIUM, SERUM 7.7 mg/dL (8.5-10.1); CREATININE 4.8 mg/dL (0.6-1.3); POTASSIUM 5.3 mmol/L (3.5-5.1)
--- NOTE | 2017-02-03 19:30 | NUR ---
MS CLOSING NOTES GAVE REPORT TO NIGHT NURSE. PATIENT IS RESTING IN BED, SIDE RAILS UP X2, BED IN LOCKED POSITION. NO SIGNS OF DISTRESS.
--- NOTE | 2017-02-03 19:45 | NUR ---
MS CERTIFIED OPHTHALMIC ASSISTANT INITIAL NOTES RECEIVED REPORT FROM AM NURSE AND SEEN PT IN BED IN SITTING POSITION WITH SIDE RAILS X 2 UP NO SOB NOTED, WITH O2 AT 2 LITERS VIA NC. SHE ALSO WITH SHERWOOD TO GRAVITY WITH CLEAR YELLOW OUTPUT NOTED. IVF STILL INFUSING AT 75ML/HR ON HER LEFT HAND PATENT AND INTACT. KEPT HER WARM AND COMFORTABLE AT ALL TIMES. ENCOURAGED HER TO USED THE CALL LIGHT IF SHE NEEDS SOME HELP. FAMILY AT THE BEDSIDE. PLACE CALL LIGHT AT REACH. WILL CONTINUE TO MONITOR.
[2017-02-03 20:00] VITALS: BP 135/60
[2017-02-03 20:07] VITALS: BP 150/71
[2017-02-03] MEDS: HYDROCODONE/APAP 5/325MG 1 EACH TABLET PO PRN (20:53)
--- NOTE | 2017-02-03 20:53 | NUR ---
REPAIRER HANDTOOLS/NOTES PAIN MGT. PT CALLED AND COMPLAINT OF BOTH FOOT PAIN , NORCO TABLET GIVEN ORDERED. SAFETY PRECAUTION IMPLEMENTED AND OBSERVED. PLACE CALL LIGHT AT REACH. AT THE BEDSIDE LEFT BY FAMILY . WILL CONTINUE TO MONITOR.
--- NOTE | 2017-02-03 22:03 | NUR ---
LEAD GAME DESIGNER NOTES RE- ASSESSMENT PT CHECKED AND PAIN SUBSIDE SHE STATED, RESTORIL GIVEN ORDERED. KEPT HER WARM AND COMFORTABLE AT ALL TIMES. STILL AT THE BEDSIDE. WILL CONTINUE TO MONITOR. PLACE CALL LIGHT AT REACH.
[2017-02-03] MEDS: TEMAZEPAM 15 MG CAPSULE PO SCH (22:04)
--- NOTE | 2017-02-04 | NUR ---
TURF FARM WORKER/NOTES PT SLEEPING COMFORTABLY IN BED WITHOUT ANY ACUTE DISTRESS NOTED,.IVF STILL INFUSING, KEPT HER WARM AND COMFORTABLE AT ALL TIMES. WILL CONTINUE TO MONITOR.
[2017-02-04] MEDS: HYDROCODONE/APAP 5/325MG 1 EACH TABLET PO PRN ×3 (03:05→13:49)
--- NOTE | 2017-02-04 03:05 | NUR ---
BOBBIN COIL WINDER/NOTES PT WOKE UP HAVING LEFT FOOT PAIN , NORCO TABLET GIVEN AND ALSO CRACKERS. REPOSITION HER FOR COMFORT. KEPT HER WARM AND COMFORTABLE AT ALL TIMES. PLACE CALL LIGHT AT REACH.
[2017-02-04] MEDS: IV NS 0.9% 1,000 ML IV PRN (05:45)
--- NOTE | 2017-02-04 06:56 | NUR ---
PROFESSOR OF RHETORIC CLOSING NOTES PT WOKE UP AND SLEPT WELL AFTER PAIN MEDS GIVEN AROUND 3AM . PT STATED ITS HELPED THE MEDS TO RELIEVED HER PAIN. ALL DUE MEDS GIVEN AND ALL NEEDS MET. KEPT HER WARM AND COMFORTABLE AT ALL TIMES. IVF STILL INFUSING. AT THE BEDSIDE. ENDORSE TO AM NURSE FOR CONTINUITY OF CARE.
[2017-02-04 07:20] LABS: BASOPHILS # (AUTO) 0.1 /CMM (0.0-0.2); BASOPHILS % (AUTO) 0.8 % (0.0-2.0); EOSINOPHILS # (AUTO) 0.5 /CMM (0.0-0.7); EOSINOPHILS % (AUTO) 6.6 % (0.0-6.0); HEMATOCRIT 24 % (33-45); HEMOGLOBIN 7.6 g/dL (11.5-14.8); LYMPHOCYTES # (AUTO) 1.3 /CMM (0.8-4.8); LYMPHOCYTES % (AUTO) 16.4 % (20.0-44.0); MEAN CORPUSCULAR HEMOGLOBIN 29 PG (26.0-33.0); MEAN CORPUSCULAR HGB CONC 32 g/dl (31.0-36.0); MEAN CORPUSCULAR VOLUME 93 fL (82-100); MONOCYTES % (AUTO) 12.2 % (2.0-12.0); PLATELET COUNT (AUTO) 166 /CMM (150-450); RDW COEFFICIENT OF VARIATION 15.1 (11.5-15.0); RED BLOOD CELL COUNT(AUTO) 2.58 MIL/uL (4.0-5.2); WHITE BLOOD COUNT (AUTO) 7.8 K/uL (4.3-11.0)
[2017-02-04 07:37] LABS: ALBUMIN 2.2 g/dL (3.4-5.0); BILIRUBIN,TOTAL 0.1 mg/dL (0.2-1.0); CALCIUM, SERUM 7.8 mg/dL (8.5-10.1); CREATININE 4.9 mg/dL (0.6-1.3); MAGNESIUM 1.5 mg/dL (1.8-2.4); PHOSPHORUS 5.1 mg/dL (2.5-4.9); POTASSIUM 5.2 mmol/L (3.5-5.1); TOTAL PROTEIN, SERUM 6.3 g/dL (6.4-8.2)
--- NOTE | 2017-02-04 07:50 | NUR ---
MS RN OPENING NOTE PATIENT IS ALERT AND ORIENTED x4. NO PAIN AT THIS TIME. NO SOB OR DISTRESS NOTED. SAFETY MEASURES IMPLEMENTED. CALL LIGHT WITHIN REACH. SHERWOOD CATHETER IN PLACE. NO DISCOLORATION. NO REDNESS OR SWELLING NOTED. IV INTACT AND PATENT NO REDNESS OR SWELLING NOTED. AMBULATORY WITH ASSISTANCE. WILL CONTINUE TO MONITOR
[2017-02-04 08:00] VITALS: BP 157/72
[2017-02-04] MEDS ORDERED: Magnesium 1GM/D5W 100ML PREMIX 100 ML IV SCH (08:00)
[2017-02-04] MEDS ORDERED: SECONDARY IV SET 1 EA INFUS.SET MC ONE (08:51)
[2017-02-04] MEDS: METOPROLOL TARTRATE 50 MG TABLET PO SCH (09:04)
[2017-02-04] MEDS: PANTOPRAZOLE 40 MG TABLET.DR PO SCH (09:04)
[2017-02-04] MEDS: NIFEdipine XL 60 MG TAB PO SCH (09:04)
[2017-02-04] MEDS ORDERED: BUMETANIDE INJ 0.25 MG/ML VIAL IV ONE (12:00)
[2017-02-04 16:00] VITALS: BP 141/64
[2017-02-04] MEDS ORDERED: COLCHICINE 0.6 MG TABLET PO SCH (16:00)
[2017-02-04 16:05] LABS: APPEARANCE,URINE CLEAR (CLEAR); BILIRUBIN,URINE NEGATIVE (NEGATIVE); BLOOD, URINE TRACE-INTA Ery/uL (NEGATIVE); COLOR,URINE YELLOW (YELLOW); KETONES,URINE NEGATIVE (NEGATIVE); LEUKOCYTE ESTERASE ,URINE NEGATIVE (NEGATIVE); NITRITE, URINE NEGATIVE (NEGATIVE); PH,URINE 5.5 (5.0-8.0); PROTEIN,URINE 2+ mg/dl (NEGATIVE); UGLUCOSE NEGATIVE (NEGATIVE); UROBILINOGEN,URINE 0.2 EU/dL (0.2)
[2017-02-04 16:08] LABS: CREATININE, URINE 17.8 MG/DL (30.0-125.0); URINE TOTAL PROTEIN 99.2 mg/dL (0-11.9)
[2017-02-04] MEDS ORDERED: COLCHICINE 0.6 MG TABLET PO ONE (17:00)
[2017-02-04] MEDS ORDERED: EPOETIN ALFA (20,000 UNIT) 20,000 UNIT/ML VIAL SQ ONE (17:00)
[2017-02-04 17:31] LABS: EOSINOPHIL,URINE Rare
[2017-02-04 17:33] LABS: ADD URINE CULTURE NO; BACTERIA,URINE None seen /HPF (None Seen); RBC,URINE 0-2 /HPF (0-2); WBC,URINE 0-2 /HPF (0-3)
[2017-02-04 17:34] LABS: SQUAMOUS EPITHELIAL CELL,UR Few /HPF (None Seen)
[2017-02-04] MEDS: SEVELAMER CARBONATE 0.8 GM POWD.PACK GT SCH (17:40)
--- NOTE | 2017-02-04 18:18 | NUR ---
MS RN CLOSING NOTE PATIENT IS ALERT AND ORIENTED X4. NO PAIN AT THIS TIME. NO SOB OR DISTRESS NOTED. ALL DUE MEDICATION GIVEN ORDERED. SAFETY MEASURES IMPLEMENTED. CALL LIGHT WITHIN REACH AT ALL TIMES. ABLE TO COMMUNICATE NEEDS. URINE SAMPLE COLLECTED. IV INTACT AND PATENT NO REDNESS OR SWELLING NOTED. LABS IN THE AM. MONITOR INTAKE AND OUTPUT. WILL ENDORSE TO ACUPUNCTURIST NURSE
--- NOTE | 2017-02-04 19:46 | NUR ---
MS TUMBLING BARREL PAINTER INITIAL NOTES RECEIVED REPORT FROM AM NURSE KYLE, CHECKED PT SHE'S AWAKE AND ALERT SITTING ON HER BED STILL EATING SOME [place]OM[place] ISLANDER FOOD. NOT IN ANY ACUTE DISTRESS NOTED. IVF NS AT 75ML/HR STILL INFUSING AT THIS TIME ON HER LEFT HAND PATENT AND INTACT. ENCOURAGE HER TO USED THE CALL LIGHT IF SHE NEED THE NURSE OR NEEDS SOME HELPED. WILL CONTINUE TO MONITOR. FAMILY STILL AT THE BEDSIDE.
[2017-02-04 20:00] VITALS: BP 147/61
[2017-02-04] MEDS: ACETAMINOPHEN 325 MG TABLET PO PRN (21:34)
--- NOTE | 2017-02-04 21:45 | NUR ---
SILK OPENER/NOTES PT HAD TEMP 102 NOW , TYLENOL GIVEN AND BLOOD CULTURE PER MD ORDERED. WILL RE-ASSES LATER.
[2017-02-04] MEDS: TEMAZEPAM 15 MG CAPSULE PO SCH (22:27)
--- NOTE | 2017-02-04 23:00 | NUR ---
MICRO PHOTOGRAPHER/NOTES RE-CHECK TEMP CHECKED PT TEMP AFTER TYLENOL GIVEN, 99F. DENIES ANY DISCOMFORT. NO SIGNS OF ANY ACUTE DISTRESS NOTED. WILL CONTINUE TO MONITOR.
[2017-02-05 07:10] LABS: BASOPHILS # (AUTO) 0.1 /CMM (0.0-0.2); BASOPHILS % (AUTO) 0.5 % (0.0-2.0); EOSINOPHILS # (AUTO) 0.3 /CMM (0.0-0.7); EOSINOPHILS % (AUTO) 2.7 % (0.0-6.0); HEMATOCRIT 25 % (33-45); HEMOGLOBIN 8.3 g/dL (11.5-14.8); LYMPHOCYTES # (AUTO) 1.2 /CMM (0.8-4.8); MEAN CORPUSCULAR HEMOGLOBIN 30 PG (26.0-33.0); MEAN CORPUSCULAR HGB CONC 33 g/dl (31.0-36.0); MEAN CORPUSCULAR VOLUME 92 fL (82-100); MONOCYTES # (AUTO) 1.2 /CMM (0.1-1.30); MONOCYTES % (AUTO) 11.4 % (2.0-12.0); NEUTROPHILS # (AUTO) 7.6 /CMM (1.8-8.9); NEUTROPHILS % (AUTO) 73.4 % (43.0-81.0); PLATELET COUNT (AUTO) 178 /CMM (150-450); RDW COEFFICIENT OF VARIATION 15.2 (11.5-15.0); RED BLOOD CELL COUNT(AUTO) 2.77 MIL/uL (4.0-5.2); WHITE BLOOD COUNT (AUTO) 10.4 K/uL (4.3-11.0)
--- NOTE | 2017-02-05 07:30 | NUR ---
MS RN AM NOTES PT IN BED, AAO X 4, SPEAKS JENNIFER, CG AT BEDSIDE, ON RA, NAD, NO SOB, C/O OF STIFFNESS TO BOTH LEGS, LEFT HAND IVHL G20 FLUSHES WELL, SITE CLEAR. AMBULATORY WITH ASSIST, SHERWOOD CATH IN PLACE. WITH ADEQUATE AMOUNT OF CLEAR YELLOW COLORED URINE. SEE NURSING FLOWSHEET FOR SKIN ISSUES. CALL LIGHT WITHIN REACH. WILL CONTINUE TO MONITOR.
[2017-02-05 07:34] LABS: CALCIUM, SERUM 8.2 mg/dL (8.5-10.1); CREATININE 4.6 mg/dL (0.6-1.3); MAGNESIUM 1.8 mg/dL (1.8-2.4); PHOSPHORUS 4.8 mg/dL (2.5-4.9); POTASSIUM 4.8 mmol/L (3.5-5.1)
--- NOTE | 2017-02-05 07:45 | NUR ---
SOFTWARE ENGINEERING ANALYST/ CLOSING NOTES PT AWAKE AND ALERT , DENIES ANY PAIN OR ANY DISCOMFORT. SLEPT WELL AFTER RESTORIL GIVEN LAST NIGHT. KEPT HER WARM AND COMFORTABLE AT ALL TIMES. FAMILY AT THE BEDSIDE. PLACE CALL LIGHT . ENDORSE.
[2017-02-05 08:00] VITALS: BP_SYST 153; BP_DIAS 63; BP_DIAS 73
[2017-02-05] MEDS: PANTOPRAZOLE 40 MG TABLET.DR PO SCH (08:49)
[2017-02-05] MEDS: SEVELAMER CARBONATE 0.8 GM POWD.PACK GT SCH ×3 (08:49→17:16)
[2017-02-05] MEDS: NIFEdipine XL 60 MG TAB PO SCH (08:50)
[2017-02-05] MEDS: METOPROLOL TARTRATE 50 MG TABLET PO SCH (08:50)
--- NOTE | 2017-02-05 09:30 | NUR ---
MS RN NOTES ADMINISTERED DUE MEDS.
[2017-02-05] MEDS ORDERED: COLCHICINE 0.6 MG TABLET PO SCH (10:30)
[2017-02-05] MEDS: HYDROCODONE/APAP 5/325MG 1 EACH TABLET PO PRN (10:37)
[2017-02-05 11:16] LABS: VIT D, 25-HYDROXY 10.8 ng/mL (30.0-100.0)
[2017-02-05] MEDS: COLCHICINE 0.6 MG TABLET PO SCH (11:50)
[2017-02-05] MEDS ORDERED: ERGOCALCIFEROL (VITAMIN D 2) 50,000 UNIT CAPSULE PO SCH (12:00)
[2017-02-05] MEDS ORDERED: COLCHICINE 0.6 MG TABLET PO ONE (12:30)
[2017-02-05] MEDS ORDERED: BUMETANIDE INJ 0.25 MG/ML VIAL IV ONE (12:30)
--- NOTE | 2017-02-05 12:45 | NUR ---
MS RN NOTES PER DR. Lucia GONZALES TO GIVE COLCHICINE 0.6MG. MD AWARE THAT 0.3 MG GIVEN THIS MORNING.
[2017-02-05 14:31] LABS: PTH, INTACT 169 pg/mL (15-65)
[2017-02-05] MEDS ORDERED: IV SET PRIMARY PUMP SET 1 EA INFUS.SET MC ONE (14:45)
[2017-02-05] MEDS: SOD FERRIC GLUC 125 MG in IV NS 0.9% 100 ML IV SCH (15:09)
--- NOTE | 2017-02-05 15:09 | NUR ---
MS RN NOTES STARTED SUZYIT IV.
[2017-02-05 16:00] VITALS: BP 123/60
[2017-02-05 18:00] VITALS: BP 123/60
[2017-02-05] MEDS ORDERED: POLYETHYLENE GLYCOL 3350 17 GM POWD.PACK PO PRN (19:00)
--- NOTE | 2017-02-05 19:10 | NUR ---
MS RN AM NOTES PT RESTING IN BED, AO X 4, SPEAKS JENNIFER, SABRA AT BEDSIDE, ON RA, NAD, NO SOB, C/O OF STIFFNESS TO BOTH LEGS, LEFT HAND IVHL G20 FLUSHES WELL, SITE CLEAR. AMBULATORY WITH ASSIST, SHERWOOD CATH IN PLACE. WITH ADEQUATE AMOUNT OF CLEAR YELLOW COLORED URINE. ALL NEED MET. NO OTHER SIGNIFICANT CHANGE IN CONDITION. CALL LIGHT WITHIN REACH. WILL ENDORSE TO NEXT SHIFT FOR SERVANDO.
--- NOTE | 2017-02-05 19:40 | NUR ---
MS RN NOTE: PATIENT RESTING IN BED, NO ACUTE DISTRESS NOTED, FAMILY AT BEDSIDE. BREATHING EVEN AND UNLABORED, NO SOB IN PLACE. IV TO LEFT HAND IN PLACE. SHERWOOD CATHETER IN PLACE, EMPTY AT THIS TIME. BED LOCKED AND IN LOWEST POSITION, CALL LIGHT IN REACH. WILL CONTINUE TO MONITOR.
--- NOTE | 2017-02-05 19:55 | NUR ---
MS RN NOTE: PATIENT COMPLAINS OF CONSTIPATION, MOM 30ML GIVEN PER MD ORDER. WILL CONTINUE TO MONITOR.
[2017-02-05 20:00] VITALS: BP 130/60
[2017-02-05] MEDS: TEMAZEPAM 15 MG CAPSULE PO SCH (21:05)
[2017-02-05] MEDS ORDERED: ENOXAPARIN SODIUM 40 MG/0.4 ML DISP.SYRIN SQ SCH (23:00)
--- NOTE | 2017-02-06 06:05 | NUR ---
MS RN NOTE: PATIENT RESTING IN BED, NO ACUTE DISTRESS NOTED, FAMILY AT BEDSIDE. BREATHING EVEN AND UNLABORED, NO SOB IN PLACE. IV TO LEFT HAND IN PLACE. SHERWOOD CATHETER IN PLACE. BED LOCKED AND IN LOWEST POSITION, CALL LIGHT IN REACH. WILL ENDORSE TO DAY NURSE TO CONTINUE WITH PLAN OF CARE.
[2017-02-06 06:50] LABS: BASOPHILS # (AUTO) 0.1 /CMM (0.0-0.2); BASOPHILS % (AUTO) 0.7 % (0.0-2.0); EOSINOPHILS # (AUTO) 0.4 /CMM (0.0-0.7); EOSINOPHILS % (AUTO) 4.6 % (0.0-6.0); HEMATOCRIT 24 % (33-45); HEMOGLOBIN 7.7 g/dL (11.5-14.8); LYMPHOCYTES # (AUTO) 1.7 /CMM (0.8-4.8); LYMPHOCYTES % (AUTO) 20.4 % (20.0-44.0); MEAN CORPUSCULAR HEMOGLOBIN 29 PG (26.0-33.0); MEAN CORPUSCULAR HGB CONC 32 g/dl (31.0-36.0); MEAN CORPUSCULAR VOLUME 93 fL (82-100); MONOCYTES # (AUTO) 1.2 /CMM (0.1-1.30); NEUTROPHILS # (AUTO) 5.1 /CMM (1.8-8.9); NEUTROPHILS % (AUTO) 60.3 % (43.0-81.0); PLATELET COUNT (AUTO) 177 /CMM (150-450); RDW COEFFICIENT OF VARIATION 14.9 (11.5-15.0); RED BLOOD CELL COUNT(AUTO) 2.61 MIL/uL (4.0-5.2); WHITE BLOOD COUNT (AUTO) 8.4 K/uL (4.3-11.0)
[2017-02-06 07:13] LABS: CALCIUM, SERUM 8.1 mg/dL (8.5-10.1); CREATININE 4.8 mg/dL (0.6-1.3); MAGNESIUM 1.9 mg/dL (1.8-2.4); PHOSPHORUS 4.3 mg/dL (2.5-4.9); POTASSIUM 4.6 mmol/L (3.5-5.1)
--- NOTE | 2017-02-06 07:30 | NUR ---
RECEIVED PT. IN AM,VS STABLE.COOPERATIVE,NO COMPLAINTS OFFERED.
[2017-02-06 08:00] VITALS: BP 144/57
[2017-02-06] MEDS: NIFEdipine XL 60 MG TAB PO SCH (09:33)
[2017-02-06] MEDS: SEVELAMER CARBONATE 0.8 GM POWD.PACK GT SCH ×3 (09:33→18:04)
[2017-02-06] MEDS: COLCHICINE 0.6 MG TABLET PO SCH (09:34)
[2017-02-06] MEDS: METOPROLOL SUCCINATE 50 MG TAB.SR.24H PO SCH (09:34)
[2017-02-06] MEDS: PANTOPRAZOLE 40 MG TABLET.DR PO SCH (09:35)
--- NOTE | 2017-02-06 10:30 | NUR ---
FAMILY AT BEDSIDE ALL DAY AND HIGH SCHOOL MUSIC DIRECTOR LIGHT [place].
--- NOTE | 2017-02-06 11:30 | NUR ---
DR. MCDONOUGH IN AND WANTS TO DC PT. FAMILY REFUSING.
[2017-02-06] MEDS ORDERED: KETOROLAC TROMETHAMINE INJ 30 MG/ML VIAL IV ONE (12:30)
[2017-02-06] MEDS ORDERED: BUMETANIDE INJ 0.25 MG/ML VIAL IV ONE (12:30)
[2017-02-06] MEDS ORDERED: EPOETIN ALFA (4000 UNIT) 4,000 UNIT/ML VIAL SQ ONE (12:30)
[2017-02-06] MEDS: SOD FERRIC GLUC 125 MG in IV NS 0.9% 100 ML IV SCH (14:46)
[2017-02-06 16:00] VITALS: BP 137/57
--- NOTE | 2017-02-06 19:48 | NUR ---
MS/RN OPENING NOTES PATIENT IN BED, AWAKE AND ALERT WITH FAMILY MEMBERS. ABLE TO VERBALIZE NEEDS AT ALL TIMES. NO S/S OF SOB OR DISTRESS. DISCUSSED PLAN OF CARE.MONITORING FOR ANY S/S OF DISTRESS. I/O MONITORING, IV SITE ON LEFT AC PATENCY. WILL MONITOR AND CONTINUE OF CARE.
[2017-02-06 20:00] VITALS: BP 115/51
[2017-02-06] MEDS ORDERED: ENOXAPARIN SODIUM 30 MG/0.3 ML DISP.SYRIN SQ SCH (21:00)
[2017-02-06] MEDS: TEMAZEPAM 15 MG CAPSULE PO SCH (21:39)
--- NOTE | 2017-02-06 22:06 | NUR ---
MS/RN NOTES PATIENT IN BED , AWAKE AND ALERT. PROVIDED MEDICATION OF RESTORIL FOR SLEEP. CHARGE NURSE INFORMED REGARDING H/H LEVEL, W/ MD ORDER TO CONTINUE. MONITORING FOR ANY S/S OF BLEEDING.
--- NOTE | 2017-02-07 06:10 | NUR ---
MS/RN CLOSING NOTES PATIENT IN BED. ASLEEP BUT AROUSABLE. NO S.S OF SOB OR DISTRESS. FAMILY WAS AT BEDSIDE, MONITORING FOR ANY CHANGE OF CONDITION, NO PAIN OBSERVED AND REPORTED. CALL LIGHTS WITHIN REACH. BED IN LOCK POSITION. WILL ENDORSE TO AM RN REGARDING SERVANDO.
--- NOTE | 2017-02-07 07:51 | NUR ---
RN AM NOTES PATIENT RESTING COMFORTABLY IN BED WITH FAMILY AT BEDSIDE. ONE LARGE BM THIS AM. SHERWOOD IN PLACE DRAINING CLEAR YELLOW LIQUID. NO COMPLAINTS OF PAIN OR DISCOMFORT. WILL CONTINUE TO MONITOR.
[2017-02-07 09:05] VITALS: BP 144/63
[2017-02-07] MEDS: PANTOPRAZOLE 40 MG TABLET.DR PO SCH (09:06)
[2017-02-07] MEDS: SEVELAMER CARBONATE 0.8 GM POWD.PACK GT SCH ×2 (09:06→13:00)
[2017-02-07] MEDS: NIFEdipine XL 60 MG TAB PO SCH (09:07)
[2017-02-07] MEDS: COLCHICINE 0.6 MG TABLET PO SCH (09:07)
[2017-02-07] MEDS: METOPROLOL SUCCINATE 50 MG TAB.SR.24H PO SCH (09:08)
[2017-02-07 11:16] LABS: BASOPHILS % (AUTO) 0.6 % (0.0-2.0); EOSINOPHILS # (AUTO) 0.6 /CMM (0.0-0.7); EOSINOPHILS % (AUTO) 8.4 % (0.0-6.0); HEMATOCRIT 27 % (33-45); HEMOGLOBIN 8.5 g/dL (11.5-14.8); LYMPHOCYTES # (AUTO) 1.2 /CMM (0.8-4.8); LYMPHOCYTES % (AUTO) 16.6 % (20.0-44.0); MEAN CORPUSCULAR HEMOGLOBIN 29 PG (26.0-33.0); MEAN CORPUSCULAR HGB CONC 31 g/dl (31.0-36.0); MEAN CORPUSCULAR VOLUME 92 fL (82-100); MONOCYTES # (AUTO) 0.8 /CMM (0.1-1.30); MONOCYTES % (AUTO) 11.3 % (2.0-12.0); NEUTROPHILS # (AUTO) 4.4 /CMM (1.8-8.9); NEUTROPHILS % (AUTO) 63.1 % (43.0-81.0); PLATELET COUNT (AUTO) 241 /CMM (150-450); RDW COEFFICIENT OF VARIATION 15.4 (11.5-15.0); RED BLOOD CELL COUNT(AUTO) 2.94 MIL/uL (4.0-5.2)
[2017-02-07 12:56] LABS: CALCIUM, SERUM 8.4 mg/dL (8.5-10.1); POTASSIUM 4.3 mmol/L (3.5-5.1)
--- NOTE | 2017-02-07 13:56 | NUR ---
MED REFUSED. PATIENT IS IN THE PROCESS OF DISCHARGING.
[2017-02-07] MEDS ORDERED: COLC0.6C3 PO (13:58)
[2017-02-07] MEDS: SOD FERRIC GLUC 125 MG in IV NS 0.9% 100 ML IV SCH (14:00)
--- NOTE | 2017-02-07 14:31 | NUR ---
PATIENT SHERWOOD D/C, ABLE TO VOID X1 INDEPENDENTLY.
[2017-02-07 14:50] VITALS: BP 130/68
--- NOTE | 2017-02-07 14:51 | NUR ---
USED CAR MAKE READY MECHANIC NOTES PATIENT LEFT IN STABLE CONDITION IN WHEELCHAIR, ACCOMPANIED BY FAMILY. DISCHARGE PAPERWORK AND TEACHING DONE, FOR FOLLOW UP WITH DR. SMITH, WITH RX FOR NEW MEDICATION AND LAB RESULT FOR STAT LABS INCLUDED. ALL PERSONAL BELONGINGS WITH PATIENT. CASE MANAGEMENT DONE. PATIENT LEFT HOSPITAL SAFELY IN PRIVATE CAR.
[2017-02-08 10:13] LABS: *SPE A/G RATIO 0.9 (0.7-1.7); *SPE ALBUMIN 2.6 g/dL (2.9-4.4); *SPE ALPHA-1-GLOBULIN 0.2 g/dL (0.0-0.4); *SPE ALPHA-2-GLOBULIN 0.7 g/dL (0.4-1.0); *SPE BETA GLOBULIN 0.8 g/dL (0.7-1.3); *SPE GLOBULIN, TOTAL 2.9 g/dL (2.2-3.9); *SPE M-SPIKE Not Observed g/dL (Not Observed); *SPE PROTEIN TOTAL 5.5 g/dL (6.0-8.5); *SPEGAMMA GLOBULIN 1.3 g/dL (0.4-1.8)
[2017-02-09 12:21] LABS: CALCITRIOL VIT D,1, 25 DIHYDRO 5.8 pg/mL (19.9-79.3)
== END 2017-02-07 14:45 | disposition home or self-care (01) | DRG 682 ==
LOC: ER 21:57 → TELE 23:35 → MED 02-03 08:15
PROVIDERS: ADMIT Nurse Practitioner Acute Care; ATTEND Nurse Practitioner Acute Care
DX: N17.0 Acute kidney failure with tubular necrosis (principal); K85.90 Acute pancreatitis without necrosis or infection, unspecified; I50.33 Acute on chronic diastolic (congestive) heart failure; I13.0 Hypertensive heart and chronic kidney disease with heart failure and stage 1 through stage 4 chronic kidney disease, or unspecified chronic kidney disease; K86.1 Other chronic pancreatitis; E87.2 Acidosis; J90 Pleural effusion, not elsewhere classified; J45.909 Unspecified asthma, uncomplicated; E78.5 Hyperlipidemia, unspecified; D63.8 Anemia in other chronic diseases classified elsewhere; N18.9 Chronic kidney disease, unspecified; M10.9 Gout, unspecified; E87.5 Hyperkalemia; Z87.440 Personal history of urinary (tract) infections
CPT/HCPCS: 36415; 71010-TC; 76770-TC; 80048-TC; 80053-TC; 80061-TC; 80076-TC; 81000-TC; 82306; 82550-TC; 82565-TC; 82570-TC; 82652; 82728-TC; 83540-TC; 83690-TC; 83735-TC; 83880; 83970; 84100-TC; 84132-TC; 84155; 84155-TC; 84165; 84300-TC; 85025-TC; 85027-TC; 87040-TC; 87081-TC; 93307-TC; 97001-TC; 97110-TC; 97112-TC; 97530-TC; A4606; J0885; J1650; J1885; J2916; J3475; J3490; J7030; Z7610

== ENCOUNTER 2017-06-18 19:35 | Inpatient (IN) | payer MEDICARE, MEDICAID ==
[~2017-06-18] VITALS: Ht 152.4 cm; Wt 52.2 kg
[~2017-06-18 19:35] MED LIST changes: +COLC0.6C3 PO
--- NOTE | 2017-06-18 20:10 | NUR ---
TO BED 2 AMBULATORY C/O ABDOMINAL PAIN WITH FREQUENCY URINATION X1 WEEK. PT AAOX4 NO ACUTE DISTRESS NOTED, RESP EVEN AND UNLABORED. PENDING ER MD FRIEDMAN. PT AT BEDSIDE.
--- NOTE | 2017-06-18 20:37 | NUR ---
URINE SAMPLE COLLECTED AND SENT TO LAB.
[2017-06-18 20:42] LABS: BASOPHILS # (AUTO) 0.1 /CMM (0.0-0.2); BASOPHILS % (AUTO) 0.9 % (0.0-2.0); EOSINOPHILS # (AUTO) 0.6 /CMM (0.0-0.7); EOSINOPHILS % (AUTO) 7.9 % (0.0-6.0); HEMATOCRIT 31 % (33-45); HEMOGLOBIN 10.1 g/dL (11.5-14.8); LYMPHOCYTES # (AUTO) 1.8 /CMM (0.8-4.8); LYMPHOCYTES % (AUTO) 25.3 % (20.0-44.0); MEAN CORPUSCULAR HEMOGLOBIN 31 PG (26.0-33.0); MEAN CORPUSCULAR HGB CONC 33 g/dl (31.0-36.0); MEAN CORPUSCULAR VOLUME 96 fL (82-100); MONOCYTES # (AUTO) 0.5 /CMM (0.1-1.30); MONOCYTES % (AUTO) 6.5 % (2.0-12.0); NEUTROPHILS # (AUTO) 4.1 /CMM (1.8-8.9); NEUTROPHILS % (AUTO) 59.4 % (43.0-81.0); PLATELET COUNT (AUTO) 165 /CMM (150-450); RDW COEFFICIENT OF VARIATION 16.7 (11.5-15.0); RED BLOOD CELL COUNT(AUTO) 3.25 MIL/uL (4.0-5.2); WHITE BLOOD COUNT (AUTO) 7.1 K/uL (4.3-11.0)
[2017-06-18 20:44] LABS: APPEARANCE,URINE Clear (CLEAR); BILIRUBIN,URINE Negative (NEGATIVE); BLOOD, URINE Trace-lysed Ery/uL (NEGATIVE); COLOR,URINE Yellow (YELLOW); KETONES,URINE Negative (NEGATIVE); LEUKOCYTE ESTERASE ,URINE Trace (NEGATIVE); NITRITE, URINE Negative (NEGATIVE); PH,URINE 5.5 (5.0-8.0); PROTEIN,URINE >=300 mg/dl (NEGATIVE); UGLUCOSE Negative (NEGATIVE); UROBILINOGEN,URINE 0.2 EU/dL (0.2)
[2017-06-18 20:55] LABS: CALCIUM, SERUM 8.5 mg/dL (8.5-10.1); CARBON DIOXIDE 13 mmol/L (21-32); CHLORIDE 111 mmol/L (98-107); CREATININE 5.7 mg/dL (0.6-1.3); GLUCOSE 90 mg/dL (74-106); POTASSIUM 4.4 mmol/L (3.5-5.1); SODIUM SERUM 141 mmol/L (136-145); UREA NITROGEN, BLOOD 73 mg/dL (7-18)
[2017-06-18 20:59] LABS: ALANINE AMINOTRANSFERASE 12 U/L (12-78); ALBUMIN 3.3 g/dL (3.4-5.0); ALKALINE PHOSPHATASE 96 U/L (46-116); ASPARTATE AMINOTRANSFERASE 15 U/L (15-37); BILIRUBIN,DIRECT 0.1 mg/dL (0.0-0.2); BILIRUBIN,TOTAL 0.3 mg/dL (0.2-1.0); LIPASE 573 U/L (73-393); TOTAL PROTEIN, SERUM 7.7 g/dL (6.4-8.2)
--- NOTE | 2017-06-18 21:17 | NUR ---
ER MD AT BEDSIDE TALKING TO PT AND PT SON REGARDING LAB RESULTS.
[2017-06-18 21:19] LABS: BACTERIA,URINE Rare /HPF (None Seen); SQUAMOUS EPITHELIAL CELL,UR Few /HPF (None Seen); WBC,URINE NONE SEEN /HPF (0-3)
--- NOTE | 2017-06-18 21:23 | NUR ---
PT TRANSPORTED TO RADIOLOGY FOR CT ABD/PELVIS.
--- NOTE | 2017-06-18 21:28 | NUR ---
PAGED ELISEO THOMAS DNP FOR PANEL ADMISSION
--- NOTE | 2017-06-18 21:36 | NUR ---
PT BACK FROM RADIOLOGY. PENDING CT ABD/PELVIS RESULT.
--- NOTE | 2017-06-18 21:47 | NUR ---
ER TALKING TO ELIA CEE DNP REGARDING PT ADMISSION.
--- NOTE | 2017-06-18 21:50 | NUR ---
FEMALE RN NEW AT BEDSIDE FOR F/C INSERTION.
--- NOTE | 2017-06-18 22:23 | NUR ---
REPORT CALLED TO REFINERY OPERATOR POLYMERIZATION PLANTBEREKET DEL VALLE. WILL TRANSPORT PT VIA ACLS PROTOCOL.
[2017-06-18 23:00] VITALS: BP 147/68
[2017-06-18] MEDS ORDERED: ONDANSETRON HCL/PF 4 MG/2 ML VIAL IVP PRN (23:00)
[2017-06-18] MEDS ORDERED: ACETAMINOPHEN 325 MG TABLET PO PRN (23:00)
--- NOTE | 2017-06-18 23:00 | NUR ---
CERTIFIED MARINE MECHANIC NOTE: RECEIVE PATIENT FROM ER, NO ACUTE DISTRESS NOTED, FAMILY AT BEDSIDE. BREATHING EVEN AND UNLABORED, NO SOB NOTED. IV TO LAC IN PLACE. SHERWOOD CATHETER INSERTED IN ER. TELE READING SR 80. ORIENTED PATIENT TO ROOM AND USE OF CALL LIGHT. BED LOCKED AND IN LOWEST POSITION, CALL LIGHT IN REACH. WILL CONTINUE TO MONITOR.
[2017-06-18] MEDS ORDERED: TEMAZEPAM 15 MG CAPSULE ONE (23:48)
[2017-06-18] MEDS: TEMAZEPAM 15 MG CAPSULE PO SCH (23:55)
[2017-06-19] VITALS: BP 157/68
--- NOTE | 2017-06-19 00:30 | NUR ---
CONSERVATION OR HERITAGE ARCHITECT NOTE: PATIENT NORMALLY TAKES RESTORIL AT BEDTIME ROUTINELY. ORDER IS TO START TOMORROW NIGHT. SPOKE TO AIRPLANE PATROLLER MD, ELISEO THOMAS, OK TO HAVE PATIENT TAKE RESTORIL TONIGHT. ORDER NOTED AND CARRIED OUT. RESTORIL 15MG ORAL GIVEN PER MD ORDER, WILL CONTINUE TO MONITOR.
[2017-06-19 04:00] VITALS: BP 167/76
[2017-06-19] MEDS: IV NS 0.9% 1,000 ML IV PRN ×2 (04:25→18:50)
--- NOTE | 2017-06-19 06:05 | NUR ---
GRAVITY METER OPERATOR NOTE: PATIENT RESTING IN BED, NO ACUTE DISTRESS NOTED. BREATHING EVEN AND UNLABORED, NO SOB NOTED. IV TO LAC IN PLACE, INFUSING NS AT 75 ML/HR. SHERWOOD CATHETER IN PLACE. TELE READING SR 75. BED LOCKED AND IN LOWEST POSITION, CALL LIGHT IN REACH. WILL ENDORSE TO DAY NURSE TO CONTINUE WITH PLAN OF CARE.
[2017-06-19 06:33] LABS: BASOPHILS # (AUTO) 0.1 /CMM (0.0-0.2); BASOPHILS % (AUTO) 1.1 % (0.0-2.0); EOSINOPHILS # (AUTO) 0.7 /CMM (0.0-0.7); EOSINOPHILS % (AUTO) 9.3 % (0.0-6.0); HEMATOCRIT 30 % (33-45); HEMOGLOBIN 9.9 g/dL (11.5-14.8); LYMPHOCYTES # (AUTO) 1.5 /CMM (0.8-4.8); LYMPHOCYTES % (AUTO) 20.2 % (20.0-44.0); MEAN CORPUSCULAR HEMOGLOBIN 32 PG (26.0-33.0); MEAN CORPUSCULAR HGB CONC 33 g/dl (31.0-36.0); MEAN CORPUSCULAR VOLUME 97 fL (82-100); MONOCYTES # (AUTO) 0.7 /CMM (0.1-1.30); MONOCYTES % (AUTO) 10.2 % (2.0-12.0); NEUTROPHILS # (AUTO) 4.3 /CMM (1.8-8.9); NEUTROPHILS % (AUTO) 59.2 % (43.0-81.0); PLATELET COUNT (AUTO) 163 /CMM (150-450); RDW COEFFICIENT OF VARIATION 17.8 (11.5-15.0); RED BLOOD CELL COUNT(AUTO) 3.11 MIL/uL (4.0-5.2); WHITE BLOOD COUNT (AUTO) 7.3 K/uL (4.3-11.0)
[2017-06-19 07:07] LABS: CHOLESTEROL 225 mg/dL (<200); HDL CHOLESTEROL 41 mg/dL (40-60); LDL 162 mg/dL (0-99); THYROID STIMULATING HORMONE 2.776 uIU/mL (0.358-3.74); TRIGLYCERIDES 206 mg/dL (30-150)
[2017-06-19 07:11] LABS: ALANINE AMINOTRANSFERASE 16 U/L (12-78); ALBUMIN 2.9 g/dL (3.4-5.0); ALKALINE PHOSPHATASE 92 U/L (46-116); ASPARTATE AMINOTRANSFERASE 15 U/L (15-37); BILIRUBIN,TOTAL 0.2 mg/dL (0.2-1.0); CALCIUM, SERUM 8.4 mg/dL (8.5-10.1); CARBON DIOXIDE 14 mmol/L (21-32); CHLORIDE 115 mmol/L (98-107); CREATININE 5.3 mg/dL (0.6-1.3); GLUCOSE 96 mg/dL (74-106); MAGNESIUM 1.9 mg/dL (1.8-2.4); POTASSIUM 4.1 mmol/L (3.5-5.1); SODIUM SERUM 145 mmol/L (136-145); TOTAL PROTEIN, SERUM 7.4 g/dL (6.4-8.2); UREA NITROGEN, BLOOD 72 mg/dL (7-18)
--- NOTE | 2017-06-19 07:30 | NUR ---
MANAGER STORY NOTES PT IN BED, ASLEEP, EASY TO AROUSE, NO COMPLAINT AT THIS TIME, RESPIRATIONS NORMAL AND NOT LABORED, IV FLUIDS INFUSING WELL, CALL LIGHT WITHIN REACH.
[2017-06-19 08:00] VITALS: BP 166/73
[2017-06-19] MEDS ORDERED: METOPROLOL TARTRATE 50 MG TABLET PO SCH (09:00)
[2017-06-19] MEDS: NIFEdipine XL 60 MG TAB PO SCH (09:20)
[2017-06-19 12:00] VITALS: BP 181/73
--- NOTE | 2017-06-19 13:00 | NUR ---
HUNTER NOTES PT IN BED, AWAKE, ALERT AND ORIENTED, NO COMPLAINT OF PAIN, NOT IN DISTRESS, PT SEEN BY MD, PLAN OF CARE DISCUSSED WITH PT AND SON GRAND, VERBALIZED UNDERSTANDING, CALL LIGHT KEPT WITHIN REACH, ASSISTED WITH MEALS.
[2017-06-19 16:00] VITALS: BP 145/89
[2017-06-19] MEDS: METOPROLOL TARTRATE 50 MG TABLET PO SCH (18:21)
--- NOTE | 2017-06-19 18:44 | NUR ---
CRITICAL CARE UNIT NURSE NOTES PT IN BED, AWAKE, ALERT AND ORIENTED, NO COMPLAINT OF PAIN, BREATHING PATTERN NORMAL, IV FLUIDS INFUISING WELL, F/C IN PLACE, DRAINING WELL WITH CLEAR, YELLOW URINE, NO BLADDER DISCOMFORT NOTED, TOLERATING CURRENT DIET WELL, CALL LIGHT WITHIN REACH AT ALL TIMES, PM MEDS GIVEN, ALL NEEDS ATTENDED.
--- NOTE | 2017-06-19 19:15 | NUR ---
COMMUNITY HEALTH COORDINATOR OPENING NOTES: RECEIVED PT IN BED AND IS AWAKE AND A/OX 4. NO COMPLAINTS OF PAIN AT THIS TIME. NO S/S OF DISTRESS OR SOB. PT HAS IV ON LAC #18G AND IS BEING INFUSED WITH NS AT 75ML/HR. 2 FAMILY MEMBERS AT BEDSIDE. PT HAS F/C AND IS ATTACHED TO DRAINAGE BAG. CALL LIGHT WITHIN PT'S REACH. BED KEPT IN LOW, LOCKED POSITION, AND SIDE RAILS X 2 UP. WILL CONTINUE TO MONITOR PT.
[2017-06-19 20:00] VITALS: BP 145/63
[2017-06-19] MEDS ORDERED: TEMAZEPAM 15 MG CAPSULE PO SCH (22:00)
[2017-06-19] MEDS: TEMAZEPAM 15 MG CAPSULE PO SCH (22:00)
--- NOTE | 2017-06-19 22:30 | NUR ---
CHILD CARE COOK NOTES: PT REFUSED HER RESTORIL 15MG PO.
[2017-06-20] VITALS (9 sets, daily range): BP systolic 137–155; BP diastolic 62–78
[2017-06-20 06:43] LABS: BASOPHILS # (AUTO) 0.1 /CMM (0.0-0.2); BASOPHILS % (AUTO) 0.8 % (0.0-2.0); EOSINOPHILS # (AUTO) 0.6 /CMM (0.0-0.7); EOSINOPHILS % (AUTO) 7.9 % (0.0-6.0); HEMATOCRIT 30 % (33-45); LYMPHOCYTES # (AUTO) 1.3 /CMM (0.8-4.8); LYMPHOCYTES % (AUTO) 18.4 % (20.0-44.0); MEAN CORPUSCULAR HEMOGLOBIN 32 PG (26.0-33.0); MEAN CORPUSCULAR HGB CONC 33 g/dl (31.0-36.0); MEAN CORPUSCULAR VOLUME 97 fL (82-100); MONOCYTES # (AUTO) 0.6 /CMM (0.1-1.30); MONOCYTES % (AUTO) 8.1 % (2.0-12.0); NEUTROPHILS # (AUTO) 4.5 /CMM (1.8-8.9); NEUTROPHILS % (AUTO) 64.8 % (43.0-81.0); PLATELET COUNT (AUTO) 166 /CMM (150-450); RDW COEFFICIENT OF VARIATION 17.3 (11.5-15.0); RED BLOOD CELL COUNT(AUTO) 3.15 MIL/uL (4.0-5.2)
--- NOTE | 2017-06-20 06:47 | NUR ---
GROUND WATER PUMP INSTALLER CLOSING NOTES: ALL NEEDS WERE ATTENDED AND ANTICIPATED FOR. PT IS IN BED RESTING AND ASLEEP. PT HAS BEEN A/OX4 THROUGHOUT MY SHIFT. NO COMPLAINTS OF PAIN OR NO S/S OF DISTRESS OR SOB. PT HAS IV ON L AC #18G AND IS BEING INFUSED WITH IV NS AT 75ML/HR. PT IS ON TELE MONITOR AND IS SR 67. SHERWOOD CATH OUTPUT FOR THE SHIFT WAS 1000 ML. CALL LIGHT WITHIN PT'S REACH. BED KEPT IN LOW, LOCKED POSITION, AND SIDE RAILS X 2 UP. WILL ENDORSE TO AM NURSE FOR SERVANDO.
[2017-06-20 07:12] LABS: CALCIUM, SERUM 8.4 mg/dL (8.5-10.1); CARBON DIOXIDE 15 mmol/L (21-32); CHLORIDE 117 mmol/L (98-107); CREATININE 4.9 mg/dL (0.6-1.3); GLUCOSE 85 mg/dL (74-106); MAGNESIUM 1.7 mg/dL (1.8-2.4); PHOSPHORUS 5.5 mg/dL (2.5-4.9); POTASSIUM 4.4 mmol/L (3.5-5.1); SODIUM SERUM 146 mmol/L (136-145); UREA NITROGEN, BLOOD 68 mg/dL (7-18)
--- NOTE | 2017-06-20 07:30 | NUR ---
RN MS NOTES PT IN BED, AWAKE, ALERT AND ORIENTED, NO COMPLAINT OF PAIN, NOT IN DISTRESS, IV FLUIDS INFUSING WELL, F/C IN PLACE AND DRAINING WELL WITH CLEAR, YELLOW URINE, ASSISTED WITH BREAKFAST AND ADL'S, CALL LIGHT WITHIN EASY REACH AT ALL TIMES.
[2017-06-20] MEDS: NIFEdipine XL 60 MG TAB PO SCH (08:16)
[2017-06-20] MEDS: METOPROLOL TARTRATE 50 MG TABLET PO SCH ×2 (08:17→18:07)
[2017-06-20] MEDS: IV NS 0.9% 1,000 ML IV PRN ×2 (08:19→23:31)
--- NOTE | 2017-06-20 09:41 | NUR ---
ms rn notes Dr. Pike came seen and examined the patient and ordered Lipase (lab) at 4pm. All orders carried out and noted. Will continue to monitor accordingly.
--- NOTE | 2017-06-20 12:53 | NUR ---
FINANCIAL SERVICE PROFESSIONAL NOTES PT IN BED, AWAKE, NO COMPLAINT AT THIS TIME, F/C DRAINING WELL, PT SEEN BY DR. WOODS, PLAN OF CARE DISCUSSED WITH PT AND PT'S SON GRAND AT BEDSIDE, VERBALIZED UNDERSTANDING.
[2017-06-20] MEDS: Magnesium 1GM/D5W 100ML PREMIX 100 ML IV SCH ×2 (18:39→19:48)
--- NOTE | 2017-06-20 19:01 | NUR ---
BEHAVIORAL MEDICAL DIRECTOR NOTES PT IN BED, AWAKE, ALERT AND ORIENTED, WATCHING TV, DENIES PAIN OR ANY DISCOMFORT, BREATHING PATTERN NORMAL, IV FLUIDS INFUSING WELL, RECEIVED ORDER FROM DR. BROWER FOR MAGNESIUM REPLACEMENT, NOTED AND CARRIED OUT, MD INFORMED OF LATEST LIPASE LEVEL, F/C DRAINING WELL, PM CARE RENDERED, ALL NEEDS ATTENDED.
--- NOTE | 2017-06-20 19:10 | NUR ---
R D MANAGER OPENING NOTES: RECEIVED PT IN BED AND IS AWAKE AND RESTING IN BED WATCHING [employer] CHANNEL. AT BEDSIDE. PT IS A/OX4. PT DENIES ANY PAIN. NO S/S OF DISTRESS OR SOB. PT HAS IV ON L HAND #22G AND IS BEING INFUSED WITH MAGNESIUM. WAS ENDORSED FOR ANOTHER BAG OF MAGNESIUM BAG TO BE HUNG AFTER IT IS FINISHED. PT HAS F/C AND IS ATTACHED TO DRAINAGE BAG. WILL CONTINUE TO MONITOR PT.
[2017-06-20] MEDS: TEMAZEPAM 15 MG CAPSULE PO SCH (21:50)
--- NOTE | 2017-06-20 21:50 | NUR ---
MARRIAGE COUNSELOR NOTES: PT IS REFUSING HER TEMAZEPAM MED.
[2017-06-21 04:00] VITALS: BP 149/59
--- NOTE | 2017-06-21 04:54 | NUR ---
TELECOMMUNICATOR NOTES: PT IS COMPLAINING OF L FOOT PAIN; PT WAS ASKING FOR SALONPAS; EXPLAINED TO HER THAT WE DO NOT HAVE AN ORDER FOR THAT FOR HER AND WE DO NOT CARRY THAT ; OFFERED PT TYLENOL 650MG ; APPLIED WARM BLANKET ON L FOOT AND ELEVATED WELL; PT EXPLAINED THAT SHE HAS HX OF GOUT ; WILL CONTINUE TO MONITOR PT.
[2017-06-21 06:32] LABS: BASOPHILS % (AUTO) 0.4 % (0.0-2.0); EOSINOPHILS # (AUTO) 0.4 /CMM (0.0-0.7); EOSINOPHILS % (AUTO) 4.7 % (0.0-6.0); HEMATOCRIT 32 % (33-45); HEMOGLOBIN 10.3 g/dL (11.5-14.8); LYMPHOCYTES # (AUTO) 2.7 /CMM (0.8-4.8); LYMPHOCYTES % (AUTO) 30.2 % (20.0-44.0); MEAN CORPUSCULAR HEMOGLOBIN 32 PG (26.0-33.0); MEAN CORPUSCULAR HGB CONC 33 g/dl (31.0-36.0); MEAN CORPUSCULAR VOLUME 98 fL (82-100); MONOCYTES # (AUTO) 0.5 /CMM (0.1-1.30); NEUTROPHILS # (AUTO) 5.2 /CMM (1.8-8.9); NEUTROPHILS % (AUTO) 58.7 % (43.0-81.0); PLATELET COUNT (AUTO) 163 /CMM (150-450); RDW COEFFICIENT OF VARIATION 17.6 (11.5-15.0); RED BLOOD CELL COUNT(AUTO) 3.25 MIL/uL (4.0-5.2); WHITE BLOOD COUNT (AUTO) 8.9 K/uL (4.3-11.0)
--- NOTE | 2017-06-21 06:33 | NUR ---
MARKETING PROFESSOR CLOSING NOTES: ALL NEEDS WERE ATTENDED AND ANTICIPATED FOR. PT IS AWAKE AND SITTING UP IN BED APPLYING MAKEUP. AT BEDSIDE. PT HAS BEEN A/OX 4 THROUGHOUT SHIFT. PT DENIES ANY PAIN AT THIS TIME. NO S/S OF DISTRESS OR SOB NOTED. BREATHING EVEN AND UNLABORED. PT HAS IV ON L HAND #22G AND IS BEING INFUSED WITH NS AT 75ML/HR. PT HAS F/C AND IS ATTACHED TO DRAINAGE BAG. OUTPUT WAS 900ML. PT IS ON TELE MONITOR OR IS SR 66. WILL ENDORSE TO AM NURSE FOR SERVANDO.
[2017-06-21 06:57] VITALS: BP 115/70
[2017-06-21 07:04] LABS: CALCIUM, SERUM 8.3 mg/dL (8.5-10.1); CARBON DIOXIDE 14 mmol/L (21-32); CHLORIDE 116 mmol/L (98-107); CREATININE 4.6 mg/dL (0.6-1.3); GLUCOSE 95 mg/dL (74-106); LIPASE 528 U/L (73-393); MAGNESIUM 2.5 mg/dL (1.8-2.4); PHOSPHORUS 4.6 mg/dL (2.5-4.9); POTASSIUM 4.2 mmol/L (3.5-5.1); SODIUM SERUM 144 mmol/L (136-145); UREA NITROGEN, BLOOD 57 mg/dL (7-18)
--- NOTE | 2017-06-21 07:30 | NUR ---
ms rn received on bed,awake,alert,oriented x4,not in any form of distress, respirations even and unlabored,no sob noted. lungs are clear, abdomen soft, positive bowel sounds, will monitor patient.
[2017-06-21 09:00] VITALS: BP 135/71
--- NOTE | 2017-06-21 09:00 | NUR ---
MS RN BREAKFAST SERVED,TOLERATED WELL.
--- NOTE | 2017-06-21 10:27 | NUR ---
MS RN WAS SEEN BY DR. LUIS Braxton/ ORDERS MADE AND CARRIED OUT.
--- NOTE | 2017-06-21 11:00 | NUR ---
ms rn was seen by dr. shanique maciel/ order to be discharge today, will monitor patient.
[2017-06-21 12:36] VITALS: BP 158/71
[2017-06-21] MEDS: NIFEdipine XL 60 MG TAB PO SCH (12:36)
[2017-06-21] MEDS: METOPROLOL TARTRATE 50 MG TABLET PO SCH (12:36)
--- NOTE | 2017-06-21 13:26 | NUR ---
ms rn went home accompanied by , discharge instructions given, son called for discharge, went home via private car.all needs attended.
== END 2017-06-21 13:11 | disposition home or self-care (01) | DRG 438 ==
LOC: ER 19:39 → TELE 22:14
PROVIDERS: ADMIT Nurse Practitioner Acute Care; ATTEND Nurse Practitioner Acute Care
DX: K85.90 Acute pancreatitis without necrosis or infection, unspecified (principal); N18.6 End stage renal disease; N17.0 Acute kidney failure with tubular necrosis; E87.2 Acidosis; I31.3 Pericardial effusion (noninflammatory); I12.0 Hypertensive chronic kidney disease with stage 5 chronic kidney disease or end stage renal disease; J84.10 Pulmonary fibrosis, unspecified; E83.9 Disorder of mineral metabolism, unspecified; J45.909 Unspecified asthma, uncomplicated; Z90.49 Acquired absence of other specified parts of digestive tract; K86.1 Other chronic pancreatitis; K57.30 Diverticulosis of large intestine without perforation or abscess without bleeding; K76.89 Other specified diseases of liver; M10.9 Gout, unspecified; N28.1 Cyst of kidney, acquired; D64.9 Anemia, unspecified
CPT/HCPCS: 36415; 71010-TC; 71250-TC; 80048-TC; 80053-TC; 80061-TC; 80076-TC; 81000-TC; 83690-TC; 83735-TC; 84100-TC; 84443-TC; 85025-TC; 87081-TC; 93307-TC; J3475; J7030; Z7610

== ENCOUNTER 2017-10-20 19:03 | Inpatient (IN) | payer MEDICARE, MEDICAID ==
[2017-10-20] VITALS: BP 158/78
[~2017-10-20] VITALS: Ht 152.4 cm; Wt 47.2 kg
[~2017-10-20 19:03] MED LIST changes: +METO50TA16 PO; -METO50TA3 PO
[2017-10-20 19:34] LABS: BASOPHILS % (AUTO) 0.9 % (0.0-2.0); EOSINOPHILS # (AUTO) 0.1 /CMM (0.0-0.7); HEMATOCRIT 37 % (33-45); HEMOGLOBIN 12.2 g/dL (11.5-14.8); MEAN CORPUSCULAR HEMOGLOBIN 30 PG (26.0-33.0); MEAN CORPUSCULAR HGB CONC 33 g/dl (31.0-36.0); MEAN CORPUSCULAR VOLUME 91 fL (82-100); MONOCYTES # (AUTO) 0.7 /CMM (0.1-1.30); MONOCYTES % (AUTO) 13.7 % (2.0-12.0); NEUTROPHILS # (AUTO) 2.4 /CMM (1.8-8.9); NEUTROPHILS % (AUTO) 44.4 % (43.0-81.0); PLATELET COUNT (AUTO) 131 /CMM (150-450); RDW COEFFICIENT OF VARIATION 14.6 (11.5-15.0); RED BLOOD CELL COUNT(AUTO) 4.03 MIL/uL (4.0-5.2); WHITE BLOOD COUNT (AUTO) 5.2 K/uL (4.3-11.0)
[2017-10-20 19:53] LABS: INR 0.92 (0.87-1.13); PROTHROMBIN TIME 9.6 SECS (9.5-12.7)
[2017-10-20 19:56] LABS: CALCIUM, SERUM 9.1 mg/dL (8.5-10.1); CARBON DIOXIDE 24 mmol/L (21-32); CHLORIDE 100 mmol/L (98-107); CREATININE 4.2 mg/dL (0.6-1.3); GLUCOSE 105 mg/dL (74-106); SODIUM SERUM 137 mmol/L (136-145); UREA NITROGEN, BLOOD 32 mg/dL (7-18)
[2017-10-20 20:02] LABS: ALANINE AMINOTRANSFERASE 25 U/L (12-78); ALBUMIN 3.3 g/dL (3.4-5.0); ALKALINE PHOSPHATASE 73 U/L (46-116); ASPARTATE AMINOTRANSFERASE 37 U/L (15-37); BILIRUBIN,DIRECT 0.1 mg/dL (0.0-0.2); BILIRUBIN,TOTAL 0.3 mg/dL (0.2-1.0); LIPASE 728 U/L (73-393); TOTAL PROTEIN, SERUM 7.9 g/dL (6.4-8.2)
--- NOTE | 2017-10-20 21:48 | NUR ---
PT BIBA#839 PT C/O FLU LIKE SYMTPOMS X 2 DAYS. PT AOX3 TAGALOG SPEAKING, SON AT BEDSIDE. RR EVEN AND UNLABORED. NO SOB NOTED. NAD NOTED. NO NVD AT THIS TIME. PT GOWNED AND PLACED ON MONITOR WAITING FOR MD. HD LAST DONE YESTERDAY, RIGHT CHEST HD SITE NOTED. INTACT. NO S/S INFECTION NOTED.
--- NOTE | 2017-10-20 21:51 | NUR ---
INFLUENZA SWAB COLLECTED.
--- NOTE | 2017-10-20 22:06 | NUR ---
MAURO AT BEDSIDE FOR EVAL.
[2017-10-20] MEDS ORDERED: IV NS 0.9% 250 ML BAG IV ONE (22:30)
[2017-10-20] MEDS ORDERED: AZITHROMYCIN 500 MG in IV D5W 250 ML IV ONE (22:30)
[2017-10-20] MEDS ORDERED: CEFTRIAXONE 2 G in IV D5W 50 ML IV ONE (22:30)
[2017-10-20] MEDS ORDERED: CEFTRIAXONE 1 G VIAL ONE (22:50)
--- NOTE | 2017-10-20 22:52 | NUR ---
URINE COLLECTED VIA F/C, CALLED LAB FOR UNDERBASTER.
--- NOTE | 2017-10-20 22:59 | NUR ---
DR. CHANG AT BEDSIDE FOR EVAL.
--- NOTE | 2017-10-20 23:00 | NUR ---
TELE ROOM 321-2
[2017-10-20 23:08] LABS: APPEARANCE,URINE CLEAR (CLEAR); BILIRUBIN,URINE NEGATIVE (NEGATIVE); BLOOD, URINE NEGATIVE Ery/uL (NEGATIVE); COLOR,URINE YELLOW (YELLOW); KETONES,URINE NEGATIVE (NEGATIVE); LEUKOCYTE ESTERASE ,URINE NEGATIVE (NEGATIVE); NITRITE, URINE NEGATIVE (NEGATIVE); PROTEIN,URINE 3+ mg/dl (NEGATIVE); UGLUCOSE NEGATIVE (NEGATIVE); UROBILINOGEN,URINE 0.2 EU/dL (0.2)
[2017-10-20 23:17] LABS: BACTERIA,URINE Few /HPF (None Seen); RBC,URINE 0-2 /HPF (0-2); SQUAMOUS EPITHELIAL CELL,UR Few /HPF (None Seen); WBC,URINE 0-2 /HPF (0-3)
--- NOTE | 2017-10-20 23:37 | NUR ---
REPORT GIVEN TO BEREKET YBARRA, ENDORSED 2ND ATB IVPB TO ADMIN
[2017-10-20] MEDS ORDERED: AZITHROMYCIN 500 MG VIAL ONE (23:39)
--- NOTE | 2017-10-20 23:55 | NUR ---
POWER SUPPLY ENGINEERBUGGY OPERATOR NOTES ADMITTED THIS 82 Y.O. FEMALE FROM ER PER KITA ACCOMPANIED BY FAMILY MEMBER,WITH CHIEF COMPLAINTS OF FLU LIKE SYMPTOMS X 2 DAYS.ALERT.ORIENTED X3,SALINE LOCK RIGHT WRIST INTACT AND PATENT.WITH [facility] CATH FROM ER DRAINING CLEAR YELLOW OUTPUT.NO SKIN ISSUES.ABLE TO WALK WITH ASSIST.WITH RIGHT IJ PERMA CATH FOR HEMODIALYSIS ACCESS.HD SCHEDULE WEDNESDAY AND WEDNESDAY.BED ON LOW POSITION AND LOCK,CALL LIGHT IN TREACH,NEEDS ANTICIPATED.
--- NOTE | 2017-10-20 23:56 | NUR ---
PT TRANSFERRED PER ACLS PROTOCOL
[2017-10-21] VITALS: BP 158/78
--- NOTE | 2017-10-21 00:30 | NUR ---
CASINO SLOT SUPERVISOR NOTES STARTED ON AZITHROMYCIN 500MG IV ORDERED.
[2017-10-21] MEDS ORDERED: HYDR-4077 PO (01:09)
[2017-10-21] MEDS ORDERED: ATOR20TA PO (01:09)
[2017-10-21] MEDS ORDERED: METO50TA16 PO (01:09)
[2017-10-21] MEDS ORDERED: TEMA15CA PO (01:09)
[2017-10-21] MEDS ORDERED: SENN-134 PO (01:09)
[2017-10-21] MEDS ORDERED: NIFE60TA2 PO (01:09)
[2017-10-21] MEDS ORDERED: NIFE90TA2 PO (01:09)
[2017-10-21] MEDS ORDERED: HYDR100T27 PO (01:09)
[2017-10-21] MEDS ORDERED: MAGNESIUM HYDROXIDE 30 ML UDC PO PRN (01:30)
[2017-10-21] MEDS ORDERED: ZOLPIDEM TARTRATE 5 MG TABLET PO PRN (01:30)
[2017-10-21] MEDS ORDERED: Z GUARD REMEDY 2 OZ OINT TP PRN (01:30)
[2017-10-21] MEDS ORDERED: ACETAMINOPHEN 325 MG TABLET PO PRN (01:30)
[2017-10-21] MEDS ORDERED: ONDANSETRON HCL/PF 4 MG/2 ML VIAL IVP PRN (01:30)
[2017-10-21] MEDS ORDERED: CEFTRIAXONE 1 G in IV D5W 50 ML IV SCH ×2 (01:30→08:00)
[2017-10-21] MEDS ORDERED: HYDROCODONE/APAP 5/325MG 1 EACH TABLET PO PRN (01:30)
[2017-10-21] MEDS ORDERED: MAG HYDROX/AL HYDROX/SIMETH 30 ML UDC PO PRN (01:30)
[2017-10-21] MEDS ORDERED: ALBUTEROL FS 2.5 MG/3 ML VIAL.NEB ONE (02:23)
[2017-10-21 04:00] VITALS: BP 154/66
--- NOTE | 2017-10-21 06:29 | NUR ---
BUSINESS COMMUNICATIONS INSTRUCTOR NOTES FAIRLY RESTED,SLEPT WITH INTERVALS,NO EPISODE OF SOB,AFEBRILE.CALL LIGHT IN REACH,NEEDS ATTENDED.WILL ENDORSE TO DAY NURSE FOR SERVANDO.
[2017-10-21 08:00] VITALS: BP 160/61
[2017-10-21] MEDS: ALBUTEROL FS 2.5 MG/3 ML VIAL.NEB NEB SCH ×4 (08:34→20:08)
[2017-10-21 12:00] VITALS: BP 139/70
[2017-10-21] MEDS ORDERED: SENNOSIDES/DOCUSATE SODIUM 1 TAB TABLET PO PRN (12:30)
[2017-10-21] MEDS ORDERED: hydrALAZINE HCL IV 20 MG VIAL IV PRN (13:00)
[2017-10-21 13:55] LABS: BASOPHILS # (AUTO) 0.1 /CMM (0.0-0.2); BASOPHILS % (AUTO) 1.3 % (0.0-2.0); EOSINOPHILS # (AUTO) 0.1 /CMM (0.0-0.7); EOSINOPHILS % (AUTO) 1.3 % (0.0-6.0); HEMATOCRIT 33 % (33-45); HEMOGLOBIN 11.2 g/dL (11.5-14.8); LYMPHOCYTES # (AUTO) 1.8 /CMM (0.8-4.8); LYMPHOCYTES % (AUTO) 34.9 % (20.0-44.0); MEAN CORPUSCULAR HEMOGLOBIN 31 PG (26.0-33.0); MEAN CORPUSCULAR HGB CONC 34 g/dl (31.0-36.0); MEAN CORPUSCULAR VOLUME 90 fL (82-100); MONOCYTES # (AUTO) 0.6 /CMM (0.1-1.30); MONOCYTES % (AUTO) 11.4 % (2.0-12.0); NEUTROPHILS # (AUTO) 2.6 /CMM (1.8-8.9); NEUTROPHILS % (AUTO) 51.1 % (43.0-81.0); RDW COEFFICIENT OF VARIATION 14.3 (11.5-15.0); RED BLOOD CELL COUNT(AUTO) 3.64 MIL/uL (4.0-5.2); WHITE BLOOD COUNT (AUTO) 5.2 K/uL (4.3-11.0)
[2017-10-21 14:16] LABS: PLATELET COUNT (AUTO) 87 /CMM (150-450)
[2017-10-21 15:09] LABS: EOSINOPHILS % (MANUAL) 2 % (0-4); LYMPHOCYTES % (MANUAL) 34 % (16-48); MONOCYTES % (MANUAL) 16 % (0-11.0); NEUTROPHILS % (MANUAL) 48 (42-76)
[2017-10-21 16:00] VITALS: BP 143/59
[2017-10-21] MEDS ORDERED: TEMAZEPAM 15 MG CAPSULE PO SCH (18:00)
--- NOTE | 2017-10-21 18:38 | NUR ---
Tele/RN - Notes Patient alert and oriented throughout the shift, remain afebrile, still c/o SOB with exertion, on 3 lpm via NC. Patient currently tolerating clear liquid diet, denies abdominal pain, no c/o n/v. HD treatment done today 1 liter out. Skin is intact. Patient independent with bed mobility. Koroma catheter in place for accurate intake and output monitoring. All needs attended and met. Patient and family at bedside updated on treatment plan.
--- NOTE | 2017-10-21 19:30 | NUR ---
MS RN NOTES RECEIVED RESTING COMFORTABLY ON BED,A/O X3,BREATHING REGULAR,NOT IN ANY FORM DISTRESS,SALINE LOCK RIGHT WRIST INTACT AND PATENT.SHERWOOD CATH IN PLACE DRAINING YELLOWISH OUTPUT.WITH RIGHT IJ PERMA CATH FOR HD ACCESS.FALL PRECAUTION OBSERVED,BED ON LOWEST POSITION AND LOCK.CALL LIGHT IN REACH,NEEDS ANTICIPATED.
[2017-10-21 20:00] VITALS: BP 122/51
[2017-10-21] MEDS: TEMAZEPAM 15 MG CAPSULE PO SCH (22:00)
[2017-10-21] MEDS: ATORVASTATIN 40 MG TABLET PO SCH (22:00)
--- NOTE | 2017-10-21 23:00 | NUR ---
MS RN NOTES DUE BENITO PRASAD HUNG
[2017-10-21] MEDS: CEFTRIAXONE 1 G in IV D5W 50 ML IV SCH (23:09)
--- NOTE | 2017-10-22 06:22 | NUR ---
MS RN NOTES NO SIGNIFICANT CHANGE IN STATUS.SLEPT WELL WITH RESTORIL ABOUT 10 HOURS LAST NIGHT.IN NO ACUTE DISTRESS.WILL ENDORSE TO DAY NURSE FOR SERVANDO.
--- NOTE | 2017-10-22 07:38 | NUR ---
RN OPENING NOTES RECEIVED PATIENT IN BED RESTING, A/O X4. NO ACUTE DISTRESS, NO SOB NOTED. DENIES PAIN OR DISCOMFORT. IV SITE INTACT AND PATENT, SALINE LOCK. PATIENT HAS RIGHT IJ PERMACATH FOR HD ACCESS IN PLACE. KEPT PATIENT SAFE AND COMFORTABLE. BED IN LOW, LOCKED POSITION, SEMIFOWLERS, SIDERAILS UPX2, CALL LIGHT IN REACH. WILL CONTINUE TO MONITOR ACCORDINGLY.
[2017-10-22 08:00] VITALS: BP 147/67
[2017-10-22 08:22] LABS: BASOPHILS % (AUTO) 0.8 % (0.0-2.0); EOSINOPHILS # (AUTO) 0.2 /CMM (0.0-0.7); EOSINOPHILS % (AUTO) 3.8 % (0.0-6.0); HEMATOCRIT 31 % (33-45); HEMOGLOBIN 10.7 g/dL (11.5-14.8); LYMPHOCYTES # (AUTO) 1.6 /CMM (0.8-4.8); LYMPHOCYTES % (AUTO) 29.5 % (20.0-44.0); MEAN CORPUSCULAR HEMOGLOBIN 31 PG (26.0-33.0); MEAN CORPUSCULAR HGB CONC 34 g/dl (31.0-36.0); MEAN CORPUSCULAR VOLUME 91 fL (82-100); MONOCYTES # (AUTO) 0.6 /CMM (0.1-1.30); MONOCYTES % (AUTO) 10.5 % (2.0-12.0); NEUTROPHILS % (AUTO) 55.4 % (43.0-81.0); PLATELET COUNT (AUTO) 92 /CMM (150-450); RDW COEFFICIENT OF VARIATION 15.5 (11.5-15.0); RED BLOOD CELL COUNT(AUTO) 3.42 MIL/uL (4.0-5.2); WHITE BLOOD COUNT (AUTO) 5.4 K/uL (4.3-11.0)
[2017-10-22 08:49] LABS: CALCIUM, SERUM 8.4 mg/dL (8.5-10.1); CARBON DIOXIDE 29 mmol/L (21-32); CHLORIDE 99 mmol/L (98-107); CREATININE 3.5 mg/dL (0.6-1.3); GLUCOSE 89 mg/dL (74-106); LIPASE 360 U/L (73-393); MAGNESIUM 1.7 mg/dL (1.8-2.4); PHOSPHORUS 3.3 mg/dL (2.5-4.9); POTASSIUM 3.5 mmol/L (3.5-5.1); SODIUM SERUM 138 mmol/L (136-145); UREA NITROGEN, BLOOD 15 mg/dL (7-18)
[2017-10-22] MEDS ORDERED: COLCHICINE 0.3 MG PO SCH (09:00)
[2017-10-22] MEDS: ALBUTEROL FS 2.5 MG/3 ML VIAL.NEB NEB SCH ×4 (09:35→19:43)
[2017-10-22 09:40] LABS: EOSINOPHILS % (MANUAL) 5 % (0-4); LYMPHOCYTES % (MANUAL) 31 % (16-48); MONOCYTES % (MANUAL) 11 % (0-11.0); NEUTROPHILS % (MANUAL) 53 (42-76)
--- NOTE | 2017-10-22 10:08 | NUR ---
RN NOTES DR BTULER MADE ROUNDS ON PATIENT. PER MD, STOP PRN HYDRALZINE AND CONTINUE HOME MEDS.
--- NOTE | 2017-10-22 10:58 | NUR ---
BEAD WIRE INSULATOR NOTES TRANSFER PATIENT IN ROOM 207, PATIENT IN STABLE CONDITION ACCOMPANIED BY FAMILY, KEV PULIDO, AND BEREKET ANDERSON VIA WHEELCHAIR. BEDSIDE REPORT GIVEN AND ENDORSED PATIENT TO BEREKET COLON FOR SERVANDO.
--- NOTE | 2017-10-22 11:00 | NUR ---
RN NOTES PATIENT RECEIVED FROM TELE UNIT, PATIENT DENIES PAIN OR DISCOMFORT AT THIS TIME. FAMILY AT BEDSIDE, KEPT PATIENT COMFORTABLE, ORIENTED TO ROOM AND ENVIRONMENT. ALL NEEDS ATTENDED, CALL LIGHT WITHIN REACH, WILL CONTINUE TO MONITOR.
[2017-10-22] MEDS ORDERED: Magnesium 1GM/D5W 100ML PREMIX PIGGYBACK IV ONE (11:30)
[2017-10-22] MEDS ORDERED: Magnesium 1GM/D5W 100ML PREMIX 100 ML IV SCH (12:00)
--- NOTE | 2017-10-22 12:00 | NUR ---
RN NOTES SHERWOOD CATHETER REMOVED PER DR. BUTLER. PATIENT TOLERATED PROCEDURE WELL.
[2017-10-22] MEDS ORDERED: METOPROLOL TARTRATE 50 MG TABLET PO SCH (13:42)
[2017-10-22] MEDS: METOPROLOL TARTRATE 50 MG TABLET PO SCH ×2 (14:30→21:16)
[2017-10-22 16:00] VITALS: BP 148/70
--- NOTE | 2017-10-22 16:00 | NUR ---
RN NOTES PATIENT VOIDED X1 INTO THE TOILET. PATIENT RECEIVING BREATHING TX SCHEDULED, SPO2 RANGES FROM 90-93% IN ROOM AIR. ALL NEEDS ATTENDED AND MET, CALL LIGHT WITHIN REACH, WILL CONTINUE TO MONITOR.
[2017-10-22] MEDS: hydrALAZINE HCL 50 MG TABLET PO SCH (17:21)
[2017-10-22] MEDS ORDERED: NIFEdipine XL 60 MG TAB PO SCH (18:00)
--- NOTE | 2017-10-22 19:30 | NUR ---
RN NOTES PATIENT ALERT AND ORIENTED X3, NO DISTRESS NOTED, DENIES PAIN OR DISCOMFORT, PATIENT TOLERATED DINNER WELL, DENIES NAUSEA AND VOMITING AT THIS TIME. ALL NEEDS ATTENDED AND MET, CALL LIGHT WITHIN REACH, ENDORSED TO PNEUDRAULIC SYSTEMS MECHANIC FOR SERVANDO.
--- NOTE | 2017-10-22 19:45 | NUR ---
MS RN NOTE: PATIENT RESTING IN BED, NO ACUTE DISTRESS NOTED, FAMILY AT BEDSIDE. BREATHING EVEN AND UNLABORED, NO SOB NOTED. IV TO RFA #[address] HD SITE TO RIGHT CHEST IN PLACE, NO BLEEDING NOTED. BED LOCKED AND IN LOWEST POSITION, CALL LIGHT IN REACH. WILL CONTINUE TO MONITOR.
[2017-10-22 20:00] VITALS: BP 153/74
[2017-10-22] MEDS: ATORVASTATIN 40 MG TABLET PO SCH (21:16)
[2017-10-22] MEDS: TEMAZEPAM 15 MG CAPSULE PO SCH (22:24)
[2017-10-22] MEDS: CEFTRIAXONE 1 G in IV D5W 50 ML IV SCH (22:44)
--- NOTE | 2017-10-23 03:30 | NUR ---
MS RN NOTE: PATIENT SLEEPING IN BED, NO ACUTE DISTRESS NOTED. BREATHING EVEN AND UNLABORED, NO SOB NOTED. BED LOCKED AND IN LOWEST POSITION, CALL LIGHT IN REACH. WILL CONTINUE TO MONITOR.
--- NOTE | 2017-10-23 06:20 | NUR ---
MS RN NOTE: PATIENT RESTING IN BED, NO ACUTE DISTRESS NOTED. BREATHING EVEN AND UNLABORED, NO SOB NOTED. IV TO RFA #[address] HD SITE TO RIGHT CHEST IN PLACE, NO BLEEDING NOTED. BED LOCKED AND IN LOWEST POSITION, CALL LIGHT IN REACH. WILL ENDORSE TO DAY NURSE TO CONTINUE WITH PLAN OF CARE.
[2017-10-23] MEDS: hydrALAZINE HCL 50 MG TABLET PO SCH ×2 (06:43→18:44)
[2017-10-23 06:44] LABS: BASOPHILS % (AUTO) 0.7 % (0.0-2.0); EOSINOPHILS # (AUTO) 0.5 /CMM (0.0-0.7); EOSINOPHILS % (AUTO) 9.3 % (0.0-6.0); HEMATOCRIT 32 % (33-45); HEMOGLOBIN 10.7 g/dL (11.5-14.8); LYMPHOCYTES # (AUTO) 1.4 /CMM (0.8-4.8); MEAN CORPUSCULAR HEMOGLOBIN 31 PG (26.0-33.0); MEAN CORPUSCULAR HGB CONC 34 g/dl (31.0-36.0); MEAN CORPUSCULAR VOLUME 92 fL (82-100); MONOCYTES # (AUTO) 0.6 /CMM (0.1-1.30); NEUTROPHILS # (AUTO) 2.8 /CMM (1.8-8.9); PLATELET COUNT (AUTO) 107 /CMM (150-450); RDW COEFFICIENT OF VARIATION 15.6 (11.5-15.0); RED BLOOD CELL COUNT(AUTO) 3.42 MIL/uL (4.0-5.2); WHITE BLOOD COUNT (AUTO) 5.3 K/uL (4.3-11.0)
--- NOTE | 2017-10-23 07:30 | NUR ---
MS RN NOTES PATIENT IN BED, AWAKE. ON OXYGEN AT 2L VIA NC, BREATHING EVEN AND NON LABORED, NO SOB. IVC IN RFA G22 PATENT AND INTACT, FLUSHES WELL. HD CATH IN RIGHT IJ INTACT, NO BLEEDING NOTED. APPEARS COMFORTABLE IN BED, CALL LIGHT WITHIN REACH. WILL CONT TO MONITOR.
[2017-10-23 08:00] VITALS: BP 147/66
[2017-10-23 08:13] LABS: CALCIUM, SERUM 8.6 mg/dL (8.5-10.1); CARBON DIOXIDE 26 mmol/L (21-32); CHLORIDE 98 mmol/L (98-107); CREATININE 4.4 mg/dL (0.6-1.3); GLUCOSE 84 mg/dL (74-106); MAGNESIUM 2.2 mg/dL (1.8-2.4); PHOSPHORUS 3.7 mg/dL (2.5-4.9); POTASSIUM 3.6 mmol/L (3.5-5.1); SODIUM SERUM 135 mmol/L (136-145); UREA NITROGEN, BLOOD 24 mg/dL (7-18)
[2017-10-23] MEDS: NIFEdipine XL 60 MG TAB PO SCH (08:42)
[2017-10-23] MEDS: METOPROLOL TARTRATE 50 MG TABLET PO SCH ×2 (08:42→21:19)
[2017-10-23] MEDS: ALBUTEROL FS 2.5 MG/3 ML VIAL.NEB NEB SCH ×4 (08:54→21:09)
[2017-10-23] MEDS ORDERED: EPOETIN ALFA (4000 UNIT) 4,000 UNIT/ML VIAL SQ ONE (09:00)
[2017-10-23] MEDS ORDERED: METOPROLOL TARTRATE 50 MG TABLET PO SCH ×2 (09:00)
[2017-10-23] MEDS ORDERED: SENNOSIDES/DOCUSATE SODIUM 1 TAB TABLET PO PRN (09:30)
--- NOTE | 2017-10-23 12:25 | NUR ---
LOW HGB 10.7 EPOGEN 4000 UNITS SC ADMINISTERED NOT ON TIME, PHARMACY WAS INFORMED.
--- NOTE | 2017-10-23 13:02 | NUR ---
PATIENT IS SEEN BY DR. BUTLER TODAY, CANCELLED HOME TODAY PER MD, PATIENT TO HAVE HD TODAY, PATIENT MADE AWARE.
[2017-10-23 16:00] VITALS: BP 138/71
--- NOTE | 2017-10-23 16:10 | NUR ---
DIALYSIS TREATMENT STARTED, DIALYSIS NURSE AT THE BED SIDE.
[2017-10-23] MEDS ORDERED: HEPARIN SODIUM, PORCINE 5000 UNITS/1 ML VIAL IV ONE (17:00)
--- NOTE | 2017-10-23 17:05 | NUR ---
HEPARIN SODIUM 5000 UNITS IVP ADMINISTERED BY [facility] DIALYSIS NURSE.
--- NOTE | 2017-10-23 18:24 | NUR ---
MS RN CLOSING NOTES PATIENT IN BED, A/O X4. DIALYSIS TREATMENT STILL IN PROGRESS, DIALYSIS NURSE AT THE BED SIDE. PATIENT IS SEEN BY PT TODAY, PATIENT PARTICIPATED WELL, AMBULATE WITHOUT ASSISTANCE, GAIT AND BALANCE STEADY PER PT. POSSIBLE DC TOMORROW PER DR. BUTLER, PATIENT IS AWARE. WILL ENDORSE TO WICK TENDER RN FOR SERVANDO.
--- NOTE | 2017-10-23 18:56 | NUR ---
DIALYSIS TREATMENT DONE WITH ZERO FLUID OUTPUT PER DIALYSIS NURSE. PATIENT TOLERATED DIALYSIS WELL WITH BP 148/75.
[2017-10-23 20:00] VITALS: BP 126/72
[2017-10-23] MEDS: TEMAZEPAM 15 MG CAPSULE PO SCH (21:55)
[2017-10-23] MEDS: ATORVASTATIN 40 MG TABLET PO SCH (21:56)
[2017-10-23] MEDS: CEFTRIAXONE 1 G in IV D5W 50 ML IV SCH (22:32)
--- NOTE | 2017-10-24 06:50 | NUR ---
MS RN NOTES AWAKE & RESPONSIVE. NOT IN ANY DISTRESS. NO SOB NOTED. DENIES ANY PAIN OR DISCOMFORT AT THIS TIME. WITH IV-HL PATENT & INTACT. AM CARE DONE. MONITORED ACCORDINGLY. CALL LIGHT WITHIN REACH. BED IN LOWEST POSITION. SR UP X 2 FOR SAFETY WITH BED ALARM ON. WILL ENDORSE TO NEXT SHIFT.
[2017-10-24 08:00] VITALS: BP 129/59
--- NOTE | 2017-10-24 08:07 | NUR ---
MS RN NOTES PATIENT IN BED, SLEEPING, AROUSES EASILY. ON OXYGEN AT 3L VIA NC, NO SOB. IVC IN RFA G22 PATENT AND INTACT, FLUSHES WELL. HD CATH IN RIGHT IJ INTACT, NO BLEEDING NOTED. PATIENT TO BE DISCHARGED HOME TODAY. CALL LIGHT WITHIN REACH. WILL CONT TO MONITOR.
[2017-10-24 08:23] LABS: BASOPHILS % (AUTO) 0.8 % (0.0-2.0); EOSINOPHILS # (AUTO) 0.4 /CMM (0.0-0.7); EOSINOPHILS % (AUTO) 8.3 % (0.0-6.0); HEMATOCRIT 31 % (33-45); HEMOGLOBIN 10.4 g/dL (11.5-14.8); LYMPHOCYTES # (AUTO) 1.2 /CMM (0.8-4.8); LYMPHOCYTES % (AUTO) 22.7 % (20.0-44.0); MEAN CORPUSCULAR HEMOGLOBIN 31 PG (26.0-33.0); MEAN CORPUSCULAR HGB CONC 34 g/dl (31.0-36.0); MEAN CORPUSCULAR VOLUME 92 fL (82-100); MONOCYTES # (AUTO) 0.7 /CMM (0.1-1.30); MONOCYTES % (AUTO) 13.3 % (2.0-12.0); NEUTROPHILS # (AUTO) 2.9 /CMM (1.8-8.9); NEUTROPHILS % (AUTO) 54.9 % (43.0-81.0); PLATELET COUNT (AUTO) 86 /CMM (150-450); RDW COEFFICIENT OF VARIATION 15.2 (11.5-15.0); RED BLOOD CELL COUNT(AUTO) 3.35 MIL/uL (4.0-5.2); WHITE BLOOD COUNT (AUTO) 5.3 K/uL (4.3-11.0)
[2017-10-24 08:29] VITALS: BP 129/59
[2017-10-24] MEDS: NIFEdipine XL 60 MG TAB PO SCH (08:29)
[2017-10-24] MEDS: METOPROLOL TARTRATE 50 MG TABLET PO SCH (08:29)
[2017-10-24] MEDS: hydrALAZINE HCL 50 MG TABLET PO SCH (08:29)
[2017-10-24 08:43] LABS: CALCIUM, SERUM 8.3 mg/dL (8.5-10.1); CARBON DIOXIDE 36 mmol/L (21-32); CHLORIDE 99 mmol/L (98-107); CREATININE 3.2 mg/dL (0.6-1.3); GLUCOSE 83 mg/dL (74-106); POTASSIUM 3.8 mmol/L (3.5-5.1); SODIUM SERUM 137 mmol/L (136-145); UREA NITROGEN, BLOOD 16 mg/dL (7-18)
[2017-10-24] MEDS: ALBUTEROL FS 2.5 MG/3 ML VIAL.NEB NEB SCH (08:48)
--- NOTE | 2017-10-24 08:48 | NUR ---
RT PATIENT RECEIVED ON ROOM AIR. NO DISTRESS NOTED. PATIENT AWAKE/ALERT. PATIENT STABLE.
--- NOTE | 2017-10-24 10:46 | NUR ---
PATIENT C/O RIGHT NECK PAIN 3/10, GIVEN TYLENOL PO PRN, WILL REASSESS.
--- NOTE | 2017-10-24 11:04 | NUR ---
MS RN DISCHARGED PATIENT HAS BEEN CLEARED FOR DC HOME BY . VS REMAINS STABLE, PER PATIENT NECK PAIN RELIEVED AFTER TAKING TYLENOL. SKIN INTACT, AMBULATE WITHOUT DIFFICULTY. DISCHARGE INSTRUCTION GIVEN TO GRAND/SON, VERBALIZED UNDERSTANDING. BELONGINGS CHECKED UPON DC. PATIENT LEFT HOSP IN STABLE CONDITION VIA PRIVATE CAR ACCOMPANIED BY HER FAMILY.
[2017-10-24 12:51] LABS: EOSINOPHILS % (MANUAL) 4 % (0-4); LYMPHOCYTES % (MANUAL) 21 % (16-48); MONOCYTES % (MANUAL) 8 % (0-11.0); NEUTROPHILS % (MANUAL) 67 (42-76)
== END 2017-10-24 11:00 | disposition home or self-care (01) | DRG 438 ==
LOC: ER 19:04 → TELE 23:25 → MED 10-21 00:26 → TELE 10-21 00:48 → MED 10-21 16:11 → MEDSG2 10-22 10:50
PROVIDERS: ADMIT Internal Medicine; ATTEND Internal Medicine
PROC: 5A1D70Z Performance of Urinary Filtration, Intermittent, Less than 6 Hours Per Day (ICD-10-PCS; principal; 2017-10-21)
PROC: 5A1D70Z Performance of Urinary Filtration, Intermittent, Less than 6 Hours Per Day (ICD-10-PCS; 2017-10-23)
DX: K85.90 Acute pancreatitis without necrosis or infection, unspecified (principal); E43 Unspecified severe protein-calorie malnutrition; I13.2 Hypertensive heart and chronic kidney disease with heart failure and with stage 5 chronic kidney disease, or end stage renal disease; J18.9 Pneumonia, unspecified organism; N18.6 End stage renal disease; D69.59 Other secondary thrombocytopenia; I50.33 Acute on chronic diastolic (congestive) heart failure; K86.1 Other chronic pancreatitis; Z79.899 Other long term (current) drug therapy; Z99.2 Dependence on renal dialysis; J45.909 Unspecified asthma, uncomplicated; M10.9 Gout, unspecified; R32 Unspecified urinary incontinence; G89.29 Other chronic pain; K81.9 Cholecystitis, unspecified; M85.9 Disorder of bone density and structure, unspecified; J11.1 Influenza due to unidentified influenza virus with other respiratory manifestations
CPT/HCPCS: 36415; 71045-TC; 80048-TC; 80076-TC; 81000-TC; 83605-TC; 83690-TC; 83735-TC; 84100-TC; 84484-TC; 85025-TC; 85730-TC; 87040-TC; 87081-TC; 87086-TC; 87400; 90935-TC; 94799-TC; A4216; A6402; J0456; J0696; J0885; J1644; J2405; J3475; J7050; J7060; Z7610